=== PATIENT | female | born 1945 | race Caucasian/White ===

== ENCOUNTER 2017-10-04 07:13 | Day surgery (SDC) | payer MEDICARE, SELFPAY ==
--- NOTE | 2017-10-04 | IMM_PTH ---
PATIENT: MATT HOSUE LOC: EN U#:[id number] AGE/SX: 72/F ROOM: RE10/04/[address]: Dr. Ted Seo MD : 1945 BED: DIS: 10/04/2017 SPEC #: [id number] RECD: 10/05/17 10:35 STATUS: CHAYA REKamran #: [id number] IVONNE: 10/04/17 00:[address]: Ted Seo DEPT: IMMUNOHISTOCHEMISTRY RECD BY: Catalina Feliz ENTERED: 10/05/17 10:36 SP TYPE: IMMUNO OTHR DR: Dr. Senait Hannon DO Tissues: A - Stomach, NOS Procedures: H Pylori (initial) PHYSICIAN & INSTITUTION [place] [id number] SPECIMEN INFORMATION: Tissue Source: A ? Antrum biopsy Clinical Info: Chronic GERD, epigastric pain Specimen Number: [id number] CPT code: 57465 METHODOLOGY: Deparaffinized sections of prefer/formalin-fixed tissue or PAP/DQ stained slides are incubated with monoclonal/polyclonal antibodies/oligonucleotide probes. Localization is made via biotin free immunoperoxidase method. Appropriate controls are performed and reacted as expected. Results on target cell population are indicated in the following table: RESULTS: ANTIBODY / CLONE RESULT Block A H Pylori (polyclonal) negative These tests were developed and their performance characteristics determined by [facility]. They may not have been cleared or approved by the U.S. Food and Drug Administration. The FDA has determined that such clearance or approval is not necessary. INTERPRETATION: A. Antrum, biopsy: Negative for Helicobacter pylori organisms. AM:melissa 10/05/17
[2017-10-04 07:54] VITALS: BP 192/86; PULSE 79; TEMP 36.4; O2SAT 99; BMI 27.9
[2017-10-04 08:16] LABS: Bedside Glucose 114 mg/dL (70-110)
--- NOTE | 2017-10-04 09:11 | EGD_PTH ---
PATIENT: MATT HOUSE LOC: EN U#:[id number] AGE/SX: 72/F ROOM: RE10/04/[address]: Dr. Ted Seo MD : 1945 BED: DIS: 10/04/2017 SPEC #: [id number] RECD: 10/04/17 11:04 STATUS: CHAYA CAROLYNE #: [id number] IVONNE: 10/04/17 09:[address]: Ted Seo DEPT: SURGICAL PATHOLOGY RECD BY: Sony Cantor ENTERED: 10/04/17 12:49 SP TYPE: EGD BIOPSY OT DR: Dr. Senait Hannon, Tissues: A - Gastric mucous membrane B - COLON BIOPSY Procedures: Surgery Specimen Level IV HEADER OPERATION: EGD with biopsy, colonoscopy with biopsies PRE-OP DIAGNOSIS: Chronic GERD, epigastric pain TISSUE SUBMITTED: A. Antrum biopsy for H. Pylori and path, B. Random colonic biopsies MICROSCOPIC DIAGNOSIS A. Gastric antrum, biopsy: Mild chronic gastritis. B. Colon, random biopsy: No significant pathologic change. No evidence of colitis. AM:melissa 10/05/17 COMMENT A. The results of immunohistochemistry for Helicobacter pylori will be reported separately ([id number]). MICROSCOPIC DESCRIPTION Slides are reviewed. GROSS DESCRIPTION A - Received in fixative is one container labeled with the patient's name and designated antrum biopsy for H. Pylori and path. The specimen consists of one irregular fragment of light munguia soft tissue that measures 0.3 x 0.3 x 0.1 cm. The specimen is totally submitted in one cassette. B - Received in fixative is one container labeled with the patient's name and designated random colonic biopsy. The specimen consists of multiple irregular fragments of light munguia soft tissue that in aggregate measure 0.6 x 0.6 x 0.1 cm. The specimen is totally submitted in one cassette. / SJ:melissa 10/04/17 TC:3 CPT: 54472 x2
[2017-10-04 09:40] VITALS: BP 120/71; BP 192/86; PULSE 82; RESP 16; TEMP 36.4; O2SAT 98
--- NOTE | 2017-10-04 09:40 | PCM.OPRPT ---
Problem List (1) Abdominal pain, epigastric Status: Acute Report of Operation Date of Procedure: 10/04/17 Pre-Operative Diagnosis: Mid abdominal pain. Post-Operative Diagnosis: Large hiatal hernia with 50% of the stomach within the chest. Sigmoid diverticulosis. Small rectocele Surgery/Procedure Performed:: Esophagogastroduodenoscopy with antral biopsy. Colonoscopy with random colonic biopsies Description of Surgical Findings:: Amount and informed consent was obtained. 72-year-old female was taken to the endoscopy suite. She was placed in a left lateral decubitus position. Oropharynx had been anesthetized with Topex. Throughout both the upper and lower endoscopy she received total 100 mg Demerol and 2.5 mg of Versed is intravenous sedation. Videogastroscope was inserted in the esophageal inlet advanced through the proximal mid esophagus. There was foreshortening of the esophagus to almost 25 6 cm where there appeared to be a tight curvature of the stomach. I was unable to find the true lumen and advanced. The absolute exact position of the e.g. junction was not possible to tell. The scope was then advanced in the stomach easily advanced through the pylorus the first and second portions of the duodenum were inspected not remarkable the scope withdrawn back to the antrum which appeared normal antral biopsy was obtained the scope was retroflexed and then it became apparent that there was a large sliding hiatal hernia with what appeared to be 50% of the stomach within the chest. I did not see any acute abnormalities there is no erosion of the stomach no acute inflammation. The scope was placed back in antegrade viewing position scope was carefully withdrawn and again the large portion of the stomach within the chest noted. The scope was further withdrawn and the procedure was completed. Digital rectal exam performed. Grade 3 hemorrhoids noted. Small rectocele noted. Flexible colonoscope inserted the rectum advanced with tortuous sigmoid colon extensively involved with diverticulosis. The scope was then advanced to the transverse colon by placing the patient supine and with some transabdominal pressure the scope was advanced to the cecum. The cecum ileocecal valve area was nicely achieved bowel prep was very good. The scope was carefully withdrawn from the ascending transverse and descending colon. Extensive diverticulosis of the sigmoid colon noted but no evidence of acute inflammatory change. It is of note that upon withdrawing the scope random colonic biopsies were obtained and attempt to decipher is the patient's complaint of abdominal pain. The scope was withdrawn to the rectum retroflex anorectal verge inspected and the hemorrhoidal changes noted. Excess fluid nurse aspirated free the procedure was completed with the patient tolerating it well Impression Large sliding hiatal hernia with 50% of the stomach in the chest. Foreshortened esophagus. No evidence of acute pathology. Sigmoid diverticulosis. Mildly tortuous colon. Grade 3 internal hemorrhoids. No evidence for active colonic pathology. The patient has never had a previous colonoscopy. Next screening colonoscopy would be 10 years. The patient will be notified of her pathology results as they become available. I did not see any acute pathology. It is indeterminate as to whether her large hiatal hernia is providing her symptoms. Further surgical discussion regarding treatment options will be considered based upon pathology. The patient will need to consider whether she would want to have any type of attempt at hiatal hernia repair. Cc: Dr. Hannon The upper endoscopy was started 0909. The scope was inserted 0912. That procedure was completed at 0916. The colonoscopy was started 0920. The cecum was reached at 0928.58. The procedure was completed at 0934.06. Ted Seo M.D., F.A.C.S. Type of Anesthesia:: IV Sedation
[2017-10-04 09:45] VITALS: BP 115/71; BP 192/86; PULSE 81; RESP 16; O2SAT 100
[2017-10-04 09:50] VITALS: BP 119/56; BP 192/86; PULSE 83; RESP 16; O2SAT 99
[2017-10-04 09:55] VITALS: BP 114/62; BP 192/86; PULSE 78; RESP 18; TEMP 37; O2SAT 100
[2017-10-04 10:40] VITALS: BP 192/86
== END 2017-10-04 10:41 | disposition home or self-care (01) ==
LOC: EN 07:15 → AC 07:16
PROVIDERS: Family Provider Internal Medicine; PCP Internal Medicine; Visit Provider Surgery
PROC: 0DJD8ZZ Inspection of Lower Intestinal Tract, Via Natural or Artificial Opening Endoscopic (ICD-10-PCS; CPT 45378; principal; 2017-10-04 08:25)
DX: K29.50 Unspecified chronic gastritis without bleeding (principal); K44.9 Diaphragmatic hernia without obstruction or gangrene; K57.30 Diverticulosis of large intestine without perforation or abscess without bleeding; K56.2 Volvulus; N81.6 Rectocele; K64.2 Third degree hemorrhoids; I10 Essential (primary) hypertension; K21.9 Gastro-esophageal reflux disease without esophagitis; E11.9 Type 2 diabetes mellitus without complications; Z79.84 Long term (current) use of oral hypoglycemic drugs; Z79.82 Long term (current) use of aspirin; E55.9 Vitamin D deficiency, unspecified; F32.9 Major depressive disorder, single episode, unspecified; F41.9 Anxiety disorder, unspecified; M19.90 Unspecified osteoarthritis, unspecified site; Z87.891 Personal history of nicotine dependence; E78.5 Hyperlipidemia, unspecified; Z79.899 Other long term (current) drug therapy
CPT/HCPCS: 43239; 45380; 82962; 88305; 88342; 99152; 99153; J7120

== ENCOUNTER → 2018-09-07 10:22 | Outpatient (CLI) | payer MEDICARE, SELFPAY ==
--- NOTE | 2018-09-07 10:35 | RAD_ITS ---
STUDY: X-RAY - RIGHT HAND REASON FOR EXAM: Female, 73 years old. Increasing hand and wrist pain. TECHNIQUE: 3 view(s) of the hand. COMPARISON: None. FINDINGS: There are erosive changes of the articular surface of the radius with narrowing and irregularity of the radiocarpal joint. There are erosive changes at the end of the ulna with scalloping along the medial aspect of the radius. There are erosive changes along the inferior aspect of the scaphoid. The lunate is not clearly identified. There is marked osteopenia of the remainder of the carpals with diffuse articular arthrosis. There is degenerative arthrosis of the carpometacarpal (CMC) articulation of the thumb. The second and third carpometacarpal articulations appear fused. The third and fourth appear normal There is diffuse demineralization of the metacarpals. There is degenerative arthrosis of the first metacarpophalangeal (MCP) joint. There is degenerative arthrosis of the interphalangeal joint of the thumb with articular joint space narrowing. Normal proximal and distal phalanges of the thumb. Normal metacarpophalangeal joints of the second through fifth fingers. There is arthrosis of the proximal and distal interphalangeal joints. There is medial subluxation of the second proximal interphalangeal joint. There is marked productivity and joint space narrowing of the distal third and fourth interphalangeal joints. Normal phalanges of the second through fifth fingers. No visualized fracture. The soft tissue structures are unremarkable. RAD/Hand Min 3 Views IMPRESSION: 1. 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 2. Medial subluxation/dislocation of the second proximal interphalangeal joint. 3. Diffuse degenerative changes of the interphalangeal joints. 4. Degenerative changes of first carpometacarpal joint. There is questionable fusion of the second and third carpometacarpal joints. Electronically Signed: Shiv Vital DO at 19:47 EST Tel [phone], Service support ,
--- NOTE | 2018-09-07 10:37 | RAD_ITS ---
STUDY: X-RAY - LEFT HAND REASON FOR EXAM: Female, 73 years old. Increasing hand and wrist pain. TECHNIQUE: 3 view(s) of the hand. COMPARISON: None. FINDINGS: There is marked degenerative changes of the radiocarpal articulation. Are degenerative changes of the distal radioulnar joint. There is limited visualization carpal bones due to hyperexpansion tension of the wrist on all images. The carpals appear intact. There is degenerative joint disease of the scaphotrapezium / trapezoid articulation. The remainder of the carpal articulations are normal. There is degenerative arthrosis of the carpometacarpal articulation of the thumb with lateral subluxation of the first metacarpus. There is narrowing of the second and third metacarpophalangeal joints. The fourth and fifth appear normal. Normal metacarpi. There is degenerative arthrosis of the first metacarpophalangeal (MCP) joint. There is degenerative arthrosis of the interphalangeal joint of the thumb with articular joint space narrowing. Normal proximal and distal phalanges of the thumb. Normal metacarpophalangeal joints of the second through fifth fingers. There are degenerative changes of proximal and distal interphalangeal joints of the second through fifth fingers. This is most marked distally there are erosive changes in bony productivity. Normal phalanges of the second through fifth fingers. The soft tissue structures are unremarkable. RAD/Hand Min 3 Views IMPRESSION: Marked arthritic changes of the left hand as above. Electronically Signed: Shiv Vital DO at 19:53 EST Tel [phone], Service support ,
== END ==
PROVIDERS: Family Provider Internal Medicine; PCP Internal Medicine; Referring Provider Internal Medicine; Visit Provider Internal Medicine
DX: M79.641 Pain in right hand (principal); M79.642 Pain in left hand
CPT/HCPCS: 73130

== ENCOUNTER → 2019-04-10 12:24 | Outpatient (CLI) | payer MEDICARE, SELFPAY ==
--- NOTE | 2019-04-10 12:26 | ART_ITS ---
Reason For Study: claudication Procedure A bilateral lower extremity continuous wave Doppler with analog waveform analysis and ankle brachial indexes. Left Segmental Pressures Left brachial= 167mmHg. Left posterior tibial artery = 95mmHg. Left dorsalis pedis artery = 85mmHg. Left digit = 66 mmHg. The left dorsalis pedis waveforms are monophasic. The left posterior tibial artery waveforms are monophasic. Right Segmental Pressures Right brachial= 170mmHg. Right posterior tibial artery = 184mmHg. Right dorsalis pedis artery = 165mmHg. Right digit = 117 mmHg. The right dorsalis pedis waveforms are triphasic. The right posterior tibial artery waveforms are triphasic. Indices The right ankle brachial index by the dorsalis pedis is .97. The right ankle brachial index by the posterior tibial artery is 1.08. The right digital-brachial index is .69. The left ankle brachial index by the dorsalis pedis is .5. The left ankle brachial index by the posterior tibial artery is .56. The left digital-brachial index is .39. Did not exercise pt due to severity of disease. Interpretation Summary Normal right lower extremity resting ankle brachial index and triphasic waveforms. Abnormal right digital brachial index, possible small vessel disease or temperature related. Abnormal left lower extremity resting ankle brachial index and waveforms--moderately severe occlusive disease. Abnormal left digital brachial index suggesting severe disease on waveform. Ordering Physician: Senait Hannon Performed By: NISHA RUIZ RVT
== END ==
PROVIDERS: Family Provider Internal Medicine; PCP Internal Medicine; Referring Provider Internal Medicine; Visit Provider Internal Medicine
DX: I73.9 Peripheral vascular disease, unspecified (principal)
CPT/HCPCS: 93922

== ENCOUNTER 2022-06-28 14:50 | Outpatient (RCR) | payer MEDICARE, SELFPAY ==
--- NOTE | 2022-06-28 16:52 | HP.PTEVAL ---
Patient's Visit Information MATT HOUSE is a 76 year old F referred to Physical Therapy by Dr. Senait Hannon DO with a diagnosis of Lumbar and Cervical Pain. Date of Evaluation: 06/28/22 Physical Therapist: Taryn Rivera DPT - Visit Plan Frequency: 2x /Week Duration: 4 Weeks Plan: Aquatics: focus on postural strength/stabilization. HEP Given IE: Posture, Upper Trap Stretch, Levator Stretch - Subjective Patient reports that she has arthritis throughout her whole body. When she was at the MD she felt that some thing was different. When she bends back she has pain in the lumbar spine and turning her head to the side. Neck discomfort has been about a month but she has had OA throughout her body for a long time. She was seeing a chiro 6-8 years ago and she was told that she would probably get to a point where she could not move her neck. She has been checked for RA but its negative- only OA. Neck pain is just when she turns her head or anytime she moves she has some discomfort in her spine. The neck is better but not great- she was given muscle relaxers which really helped. Neck: Worst: 7/10 Agg: turning side to side. Best: 0/10 Eases: looking straight she has no pain- describes the pain as pulling. Its more on the right than the left- She had a burning sensation through her head which is better but not complete gone. She reports no PATRICIA, blurred vision or dizziness. She does not have N/T in her hands. 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 Back: Worst: 9/10 Agg: bending back, standing for long periods of time Eases: massager, heating pad. Best: 0/10- She reports its dull- it gets sharp when she bends back. She has PAD and so she has issues with her left leg. No N/T. No leg buckling or falls. She use to be really active but now is very sedentary. She has not had recent x-rays of her spine. Never had injections. Sleep: not disturbed- starts on her left side- back-other side. PMHx: HTN, OA, DM, high cholesterol, GERD, PAD- Left TKR approx 10 years ago. Meds: see list - Objective Posture: FH, RS, increased kyphosis- can correct with verbal and tactile cues but does not maintain. Gait: decreased arm swing and trunk rotation. HR/TR: able with UE A. SLS: weight shift but does not SLS ROM: lumbar: severe restriction with flexion- extension: neutral with pain, SB/Rot: WFL, Hip/Knee/Ankle: WFL, Cervical Spine: Flexion/Extn: WNL, SB Left: WFL, SB Right: 50% restriction, Rot: Right: WNL, Left: dec by 25%, Shoulder/Elbow/Wrist: WFL Strength: Core: poor, Hip: 4/5 throughout Knee: 4+/5, Ankle: 5/5, Shoulder: 4+/5, Elbow: 5/5, Scap: fair minus mild winging. Flex: HS: severe, Gastroc: severe, UT: severe, Levator: Severe. Palpation: tender to touch on the lumbar parapsinals along bilateral gluts- cervical spine from the CT Junction to the occiput- down the upper trap to the AC joint. Reflex: WFL at bilateral patella. Sensation: WFL to gross touch bilateral UE/LE - Special Tests C/S Radiculapathy - Left Spurlings: Positive C/S Radiculapathy - Right Spurlings: Positive C/S Radiculapathy - Left Cervical distraction: Positive C/S Radiculapathy - Right Cervical distraction: Positive L/S Slump test left side: Negative L/S Slump test right side: Negative L/S Left Straight Leg Raise: Negative L/S Right Straight Leg Raise: Negative - Balance/Special Test Scores Oswestry Low Back Score: 22 - Goals Goal 1:: Patient will be I with HEP and progression Goal Time Frame: 4-6 Weeks Goal 2:: Patient will maintain proper posture t/o tx session to demo increased core/scapular s/s Goal Time Frame: 4-6 Weeks Goal 3:: Patient will report 80% improvement Goal Time Frame: 4-6 Weeks Goal 4:: Patient will report full AROM of the cervical spine Goal Time Frame: 4-6 Weeks - Rehabilitation Potential Physical Therapy Diagnosis: Patient presents with hypomobility- she has decreased LE and core/scapular strength/stabilization, flex and muscular endurance leading to poor posture, increased pain with ADL's. Rehabilitation Potential: Fair - Anticipated Interventions Patient/Client Instruction: Educate patient on: Benefits of Fitness Program Therapeutic Exercise to Include: Strength training, Endurance training, Balance training, Coordination, Agility training, Body mechanics, Postural training, Flexibilty training, Gait and locomotor training, Neuromotor development, In an aquatic setting, Dynamic Lumbar Stabilization, Scapular Strength/Stabilization For the Purpose of:: To improve muscle performance and motor function Thank you for the opportunity to evaluate your patient. For Medicare and Medicare HMO plans, please review the plan of care and approve it. It will need to be FAXED BACK to us at [phone] for Medicare purposes. For Medicare only, by signing this I certify the plan of care. Please let me know if there are questions or concerns regarding this plan of care. Physician Signature: Date:
--- NOTE | 2022-10-04 07:49 | HP.PT.NRP ---
[facility] was seen in my office for initial evaluation on 06/28/22. The following Plan of Care was established for this patient: Initial Frequency: 2x /Week Initial Duration: 4 Weeks Patient/Client Instruction: Educate patient on: Benefits of Fitness Program Therapeutic Exercise to Include: Strength training, Endurance training, Balance training, Coordination, Agility training, Body mechanics, Postural training, Flexibilty training, Gait and locomotor training, Neuromotor development, In an aquatic setting, Dynamic Lumbar Stabilization, Scapular Strength/Stabilization For the Purpose of:: To improve muscle performance and motor function This patient was last seen in our office . Pertinent comments regarding their Physical therapy will appear below: Patient has not attended PT in over 30 days- appropriate to be d/c from PT and return to MD as appropriate At this point I will be discontinuing this patient from physical therapy. I would be happy to see this patient again in the future if found appropriate by the physician. Thank you! Taryn Rivera, DPT Balance/Gait/Functional tests - Balance/Special Test Scores Oswestry Low Back Score: 22
== END 2022-06-28 19:00 | disposition home or self-care (01) ==
LOC: PT 14:50
PROVIDERS: PCP Internal Medicine; Referring Provider Internal Medicine; Visit Provider Internal Medicine
DX: M54.12 Radiculopathy, cervical region (principal); M54.16 Radiculopathy, lumbar region
CPT/HCPCS: 97110; 97162

== ENCOUNTER 2022-08-18 14:13 | Emergency (ER) | payer MEDICARE, SELFPAY ==
[2022-08-18 14:13] VITALS: BP 193/83; PULSE 85; RESP 16; TEMP 36.3; O2SAT 97; BMI 26.4
--- NOTE | 2022-08-18 15:13 | EDS_ITS ---
HPI History of Present Illness Chief Complaint: Fall Narrative Narrative: 77-year-old female presenting with headache, neck pain, right shoulder pain. Patient states that she was at her table when she got up to get some cheese and when she did so she fell into the wall off of the kitchen table and onto the floor. She states she does not recall how she fell. She does not know if she tripped or fainted. She does not think she lost consciousness but is unsure. She did hit her head and complains of pain around the right eye and forehead. She states that the head pain in the back of her head, neck, shoulder has been there for months. She initially saw a chiropractor for this. The chiropractor did not help her. She saw her PCP and was put in physical therapy, but she stated that she did not want to do physical therapy and was referred to a orthopedic surgeon who told her she had 2 choices. She states that she was offered pain management or surgery and she chose pain management. Patient denies any chest pain, palpitations, shortness of breath. No history of syncopal events. Feeling otherwise well prior to the event [facility] Medical History Abdominal pain, epigastric Anxiety Arthritis Benign essential hypertension Chronic GERD Depression Gastroesophageal reflux disease Hyperlipidemia Osteoarthritis Type 2 diabetes mellitus Ventral hernia without obstruction or gangrene Vitamin D deficiency Home Medications aspirin 81 mg tablet,delayed release (Adult Low Dose Aspirin) 81 mg PO ONCE 09/16/17 [History Last Taken Unknown] cholecalciferol (vitamin D3) 125 mcg (5,000 unit) capsule 5,000 unit PO ONCE 09/16/17 [History Last Taken Unknown] citalopram 20 mg tablet (Celexa) 20 mg PO QDAY 09/16/17 [History Last Taken Unknown] cranberry extract 500 mg capsule (Cranberry Concentrate) 500 mg PO QDAY 09/16/17 [History Last Taken Unknown] lorazepam 0.5 mg tablet 0.5 mg PO QDAY PRN Anxiety 09/16/17 [History Last Taken Unknown] losartan 100 mg-hydrochlorothiazide 25 mg tablet 1 tab PO QDAY 09/16/17 [History Last Taken 10/04/17 05:30 1 TAB] meloxicam 15 mg tablet 15 mg PO QDAY 09/16/17 [History Last Taken Unknown] metformin 500 mg tablet,extended release 24 hr 500 mg PO QDAY 09/16/17 [History Last Taken Unknown] metoprolol tartrate 25 mg tablet 25 mg PO ONCE 09/16/17 [History Last Taken Unknown] multivitamin 1 tab PO QDAY 09/16/17 [History Last Taken Unknown] omega-3 fatty acids 1,000 mg capsule (Fish Oil Concentrate) 1,000 mg PO BID 09/16/17 [History Last Taken Unknown] omeprazole 20 mg tablet,delayed release 20 mg PO QDAY 09/16/17 [History Last Taken Unknown] simvastatin 40 mg tablet 40 mg PO QODAY 09/16/17 [History Last Taken Unknown] Allergy/AdvReac Type Severity Reaction Status Date / Time hydromorphone [From Dilaudid] Allergy Unknown Unknown Verified 08/18/22 14:16 nitrofurantoin Allergy Unknown got really Verified 08/18/22 14:16 [From Macrodantin] hot and sweaty Family History Mother Arthritis Diabetes Heart disease Hypertension CVA (cerebral vascular accident) High cholesterol Father Arthritis Heart disease High cholesterol Hypertension Daughter Kidney disease Diabetes Surgical History S/P appendectomy S/P cholecystectomy S/P hysterectomy S/P tubal ligation Status post left knee replacement Social History (Updated 09/16/17 @ 16:[address] Ted Seo MD) Smoking Status: Former smoker second hand exposure: No alcohol intake: never substance use type: does not use caffeine: Yes what type of physical activity do you participate in: none frequency: does not exercise seatbelt use: always EXAM Physical Exam Const Vital Signs: 08/18/22 14:13 08/18/22 15:20 08/18/22 16:00 Temperature 97.4 F L Temperature Source Temporal Pulse Rate 85 75 Pulse Rate [Lying] Pulse Rate [Sitting (for 1 minute prior to obtaining)] Pulse Rate [Standing (for 1 minute prior to obtaining)] Respiratory Rate 16 20 H Respiratory Effort Normal Non-Labored Blood Pressure 193/83 H Blood Pressure [Lying] Blood Pressure [Sitting (for 1 minute prior to obtaining)] Blood Pressure [Standing (for 1 minute prior to obtaining)] Blood Pressure Mean 119 Blood Pressure Mean [Lying] Blood Pressure Mean [Sitting (for 1 minute prior to obtaining)] Blood Pressure Mean [Standing (for 1 minute prior to obtaining)] Pulse Ox 97 97 Oxygen Delivery Method Room Air Room Air 08/18/22 17:02 08/18/22 17:22 08/18/22 18:30 Temperature Temperature Source Pulse Rate 71 68 Pulse Rate [Lying] 72 Pulse Rate [Sitting (for 1 minute prior to obtaining)] 84 Pulse Rate [Standing (for 1 minute prior to obtaining)] 88 Respiratory Rate 18 14 Respiratory Effort Blood Pressure 174/85 H Blood Pressure [Lying] 161/67 H Blood Pressure [Sitting (for 1 minute prior to obtaining)] 157/103 H Blood Pressure [Standing (for 1 minute prior to obtaining)] 134/87 H Blood Pressure Mean 114 Blood Pressure Mean [Lying] 98 Blood Pressure Mean [Sitting (for 1 minute prior to obtaining)] 121 Blood Pressure Mean [Standing (for 1 minute prior to obtaining)] 102 Pulse Ox 97 97 Oxygen Delivery Method Room Air Room Air Positive well nourished General Appearance ED: NAD; Negative for pallor HEENT Reports normocephalic HEENT Narrative: Patient continued supraorbital region on the right. Right cheekbone slightly tender without swelling. No extraocular muscle entrapment. Pupils equal. Neck Neck Narrative: No midline spinal tenderness, step-off. There is right cervical paraspinal musculature tenderness. Tenderness in his right trapezius as well Resp normal respiratory effort and clear to auscultation bilaterally Effort and Inspection: Negative for retractions Auscultation: Negative for rales, rhonchi or wheezes Cardio regular rate Extremity Extremity Narrative: Tenderness to palpation in right trapezius into the right shoulder girdle. Patient maintains full range of motion. No numbness or tingling. No rashes. No deformities Neuro oriented x3 Psych mental status grossly normal Skin General Skin Exam: Negative for jaundice or pallor MDM MDM MDM Narrative Medical decision making narrative: 77-year-old female presenting after a fall. She does not know if she fainted or tripped. She did hit her head on the wall, table, floor. She is unsure if she was unconscious. was not in the room. He states he heard a thud and when he came in she was on the floor but she was alert. She does have a swelling on the right forehead and complains of neck pain and shoulder pain. She also states that some of the neck pain and shoulder pain is chronic. She did land on her right shoulder however. She maintains full range of motion and has some tenderness in the right trapezius. Is unclear whether she had an episode of syncope or not. Differential at this point includes but is not limited to subdural, epidural, subarachnoid hemorrhage, concussion, syncope, C- spine fracture, right shoulder fracture, right shoulder sprain, facial bone fracture, patient bone contusion. We will obtain a CT brain, facial bones, CT brain, CT cervical spine. EKG to assess for arrhythmia/dysrhythmia. Chest x- ray due to syncopal episode. Right shoulder x-ray due to right shoulder pain. CBC for white blood cell count, hemoglobin, platelets, differential. CMP for liver function, renal function, electrolytes, glucose, anion gap. Troponin to assess for cardiac etiology. Orthostatic vital signs will be assessed to make sure she is not orthostatic. CBC shows a normal white blood cell count at 9.6. Hemoglobin monitor stable. Platelets are normal. CMP shows normal liver function however creatinine is 1.40 and GFR is 39. There is no comparison in our system or on [employer]. Patient was orthostatic positive so she was given a liter IV fluids. Electrolytes within normal limits. BNP normal at 83. High- sensitivity troponin is 6. Patient does not report any chest pain. Urinalysis negative for infection. CT of the brain, cervical spine, facial bones all normal without fracture or intracranial bleeding. Right shoulder x-ray on my interpretation shows no acute fracture or subluxation. Chest x-ray on my interpretation shows no acute cardiopulmonary process. Radiology interpretation agrees. Patient has been up ambulating to and from the bathroom and has been steady. Given this I did speak to Dr. Maldonado who is on-call for Dr. Hannon I discussed the case at length with her. She is clear by [place] syncope rule. We did not think the patient needed to stay in the hospital. She recomme nded that we have her call the office tomorrow for an office visit and follow-up creatinine. Patient was informed of all this. She is discharged home in stable condition. Return precautions discussed. Impression: 1. Orthostatic hypotension 2. Near syncope 3. Acute kidney injury 4. Closed head injury 5. Cervical strain 6. Right shoulder contusion Lab Data Attestation: I reviewed the patient's lab results. Labs: Laboratory Results - last 24 hr 08/18/22 08/18/22 08/18/22 15:22 15:22 15:22 WBC 9.6 RBC 4.08 L Hgb 12.1 Hct 37.4 MCV 91.7 MCH 29.7 MCHC 32.4 RDW Std Deviation 43.3 RDW Coeff of Marjorie 13.0 Plt Count 231 MPV 9.4 Immature Gran % (Auto) 0.400 Neut % (Auto) 65.2 Lymph % (Auto) 22.4 [place] % (Auto) 9.3 Eos % (Auto) 2.1 Baso % (Auto) 0.6 Absolute Neuts (auto) 6.3 Absolute Lymphs (auto) 2.16 Nucleated RBC % 0 Sodium 140 Potassium 3.8 Chloride 104 Carbon Dioxide 27.0 Anion Gap 9 BUN 20 H Creatinine 1.40 H Estim Creat Clear Calc 23.40 Est GFR (MDRD) Af Amer 47 L Est GFR (MDRD) Non-Af 39 L BUN/Creatinine Ratio 14.3 Glucose 122 H Calcium 9.7 Total Bilirubin 0.40 AST 21 ALT 23 Alkaline Phosphatase 81 Troponin I High Sens 6 B-Natriuretic Peptide 83.3 Total Protein 7.8 Albumin 3.6 Globulin 4.2 Albumin/Globulin Ratio 0.9 Urine Color Urine Clarity Urine pH Ur Specific [place] Urine Protein Urine Glucose (UA) Urine Ketones Urine Occult Blood Urine Nitrite Urine Bilirubin Urine Urobilinogen Ur Leukocyte Esterase Urine RBC Urine WBC Ur Squamous Epith Cells Urine Bacteria Urine Mucus 08/18/22 17:13 WBC RBC Hgb Hct MCV MCH MCHC RDW Std Deviation RDW Coeff of Marjorie Plt Count MPV Immature Gran % (Auto) Neut % (Auto) Lymph % (Auto) [place] % (Auto) Eos % (Auto) Baso % (Auto) Absolute Neuts (auto) Absolute Lymphs (auto) Nucleated RBC % Sodium Potassium Chloride Carbon Dioxide Anion Gap BUN Creatinine Estim Creat Clear Calc Est GFR (MDRD) Af Amer Est GFR (MDRD) Non-Af BUN/Creatinine Ratio Glucose Calcium Total Bilirubin AST ALT Alkaline Phosphatase Troponin I High Sens B-Natriuretic Peptide Total Protein Albumin Globulin Albumin/Globulin Ratio Urine Color Yellow Urine Clarity Clear Urine pH 6.0 Ur Specific [place] 1.015 Urine Protein Negative Urine Glucose (UA) Normal Urine Ketones Negative Urine Occult Blood Negative Urine Nitrite Negative Urine Bilirubin Negative Urine Urobilinogen Normal Ur Leukocyte Esterase 100 H Urine RBC 0 SEEN Urine WBC 0 SEEN Ur Squamous Epith Cells 0-5 SEEN Urine Bacteria 0 SEEN Urine Mucus 0 SEEN Radiography Diagnostic Testing: Clinical Impression(s) from Imaging Studies Brain CT 08/18/22 15:16 IMPRESSION: Chronic involutional changes without evidence of acute intracranial or calvarial abnormality. Electronically Signed: Shiv Vital DO at 16:56 EST Reading Location ID and State: [facility] / [place] Tel [phone], Service support , Cervical Spine CT 08/18/22 15:18 IMPRESSION: Degenerative changes cervical spine without fracture or subluxation. Note: MRI is more sensitive than CT in detecting cord injury, ligamentous injury and epidural hematoma. If there is continued clinical concern for any of these entities, MRI should be considered. Electronically Signed: Shiv Vital DO at 17:01 EST Reading Location ID and State: [place] / [place] Tel [phone], Service support , Facial/Sinus 08/18/22 15:18 IMPRESSION: No evidence of facial bone fracture. Electronically Signed: Shiv Vital DO at 16:58 EST Reading Location ID and State: [facility] / [place] Tel [phone], Service support , Chest X-Ray 08/18/22 15:45 IMPRESSION: 1. Cardiomegaly with retrocardiac hiatal hernia. There is no acute pulmonary disease. 2. No evidence of acute traumatic injury to the chest. Electronically Signed: Shiv Vital DO at 16:12 EST Reading Location ID and State: [facility] / [place] Tel [phone], Service support , Shoulder X-Ray 08/18/22 15:45 IMPRESSION: Osteopenia and degenerative change without acute fracture or dislocation. Electronically Signed: Shiv Vital DO at 16:13 EST Reading Location ID and State: [place] / [place] Tel [phone], Service support , Discharge Plan Triage Chief Complaint: Fall ED Provider: Ryder Dick Dx/Rx/DC Orders Prescriptions: No Action metoprolol tartrate 25 mg tablet 25 mg PO ONCE metformin 500 mg tablet extended release 24 hr 500 mg PO QDAY meloxicam 15 mg tablet 15 mg PO QDAY omeprazole 20 mg tablet,delayed release (DR/EC) 20 mg PO QDAY losartan-hydrochlorothiazide 100-25 mg tablet 1 tab PO QDAY citalopram [Celexa] 20 mg tablet 20 mg PO QDAY simvastatin 40 mg tablet 40 mg PO QODAY lorazepam 0.5 mg tablet 0.5 mg PO QDAY PRN (Reason: Anxiety) cholecalciferol (vitamin D3) 5,000 unit capsule 5,000 unit PO ONCE aspirin [Adult Low Dose Aspirin] 81 mg tablet,delayed release (DR/EC) 81 mg PO ONCE cranberry extract [Cranberry Concentrate] 500 mg capsule 500 mg PO QDAY omega-3 fatty acids [Fish Oil Concentrate] 1,000 mg capsule 1,000 mg PO BID multivitamin tablet 1 tab PO QDAY Primary Care Provider: Senait Hannon Referrals: Senait Hannon DO [Primary Care Provider] -
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
--- NOTE | 2022-08-18 15:17 | EKG12_ITS ---
Test Reason : Blood Pressure : / mmHG Vent. Rate : 073 BPM Atrial Rate : 073 BPM P-R Int : 202 ms QRS Dur : 082 ms QT Int : 408 ms P-R-T Axes : 017 -60 025 degrees QTc Int : 449 ms Normal sinus rhythm Left axis deviation Abnormal ECG Confirmed by JANET KRUEGER, HE ([id number]), digital editor SHIVA YUEN ([id number]) on 08/20/2022 10:10:55 AM Referred By: SHANDRA Confirmed By:HE GONZALES MD
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
[2022-08-18 15:40] LABS: Absolute Lymphocyte Count 2.16 X10^3/uL (0.83-4.51); Absolute Neutrophil Count 6.3 X10^3/uL (2.0-7.7); Basophil# 0.06 X10^3/uL; Basophil% 0.6 % (0-1); Eosinophils% 2.1 % (0-5); Hematocrit 37.4 % (37-47); Hemoglobin 12.1 g/dL (12.0-15.0); Lymphocyte # 2.16 X10^3/ul (0.83-4.51); Lymphocyte % 22.4 % (19-41); Mean Corp Hgb Conc 32.4 g/dL (32-36); Mean Corpuscular Hgb 29.7 pg (27.0-32.0); Mean Corpuscular Volume 91.7 fL (81-99); Mean Platelet Vol. 9.4 fl (6.2-12.0); Monocyte% 9.3 % (0-10); NRBC Flagged by Analyzer 0 % (0-5); Neutrophil # 6.27 X10^3/uL (2.7-7.7); Neutrophil % 65.2 % (47-70); Platelet Count 231 K/mm3 (150-450); RBC Distribution Width SD 43.3 fl (35.1-43.9); Red Blood Count 4.08 M/mm3 (4.2-5.4); White Blood Count 9.6 K/mm3 (4.4-11.0)
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
--- NOTE | 2022-08-18 15:45 | RAD_ITS ---
STUDY: X-RAY - RIGHT SHOULDER REASON FOR EXAM: Female, 77 years old. Fall today. Pain. TECHNIQUE: 3 view(s) of the shoulder. COMPARISON: None. FINDINGS: There is severe degenerative arthrosis of the glenohumeral articulation. There is degenerative arthrosis of the acromioclavicular joint without inferior osseous spur formation. Normal acromion. There is no acute fracture, dislocation or destructive osseous pathology. There is demineralization of the humerus and visualized osseous structures. The soft tissue structures are unremarkable. Normal visualized pulmonary apex. RAD/Shoulder min 2 Views IMPRESSION: Osteopenia and degenerative change without acute fracture or dislocation. Electronically Signed: Shiv Vital DO at 16:13 EST ,
[2022-08-18 16:00] VITALS: PULSE 75; RESP 20; O2SAT 97
[2022-08-18 16:02] LABS: ALB/GLOB Ratio 0.9 RATIO (0.9-2.4); AST(SGOT) 21 U/L (15-37); Alanine Aminotransfer ALT/SGPT 23 U/L (13-56); Albumin, Serum 3.6 g/dL (3.2-5.0); Alkaline Phosphatase 81 U/L (45-117); Anion Gap 9 (5-15); BUN 20 mg/dL (7-18); BUN/Creat Ratio 14.3 RATIO (10-20); Calcium,Total 9.7 mg/dL (8.5-10.1); Chloride 104 mmol/L (98-107); EST Glomerular Filtration Rate 39 mL/min (>60); Est Glom Filt Rate - Afr Amer 47 mL/min (>60); Globulin 4.2 g/dL (2.2-4.2); Glucose 122 mg/dL (74-106); Potassium 3.8 mmol/L (3.5-5.1); Protein, Total 7.8 g/dL (6.4-8.2); Sodium Level 140 mmol/L (136-145); Troponin-I HS 6 pg/mL (3.0-54.0)
[2022-08-18 16:08] LABS: BNP,B-Type NATRIURETIC PEPTIDE 83.3 pg/mL (0-100)
[2022-08-18 17:02] VITALS: BP 134/87; BP 157/103; BP 161/67; PULSE 72; PULSE 84; PULSE 88
[2022-08-18 17:21] LABS: Bacteria 0 SEEN /hpf (None Seen); Mucous, Urine 0 SEEN /hpf (<or=2+); Red Blood Cells-Urine 0 SEEN /hpf (0-5); White Blood Cells 0 SEEN /hpf (0-5)
[2022-08-18 17:22] VITALS: PULSE 71; RESP 18; O2SAT 97
[2022-08-18 17:24] LABS: Color, Urine Yellow (Yellow); Glucose, Dipstick Normal (Normal); Ketone-Dipstick Negative (Negative); Leukocyte Esterase-Dipstick 100 /ul (Negative); Nitrite-Dipstick Negative (Negative); Occult Blood-Urine Negative /ul (Negative); Protein-Dipstick Negative (Negative); Specific Gravity, Urine 1.015 (1.002-1.030); Urine Bilirubin Dipstick Negative (Negative); Urine Clarity Clear (Clear); Urine Urobilinogen Normal (Normal)
[2022-08-18 17:37] LABS: Squamous Epithelial Cells - UA 0-5 SEEN /hpf (5-10)
[2022-08-18] MEDS: 0.9% Normal Saline 1,000 ML 999 ML IV (17:49)
[2022-08-18 18:30] VITALS: BP 174/85; PULSE 68; RESP 14; O2SAT 97
== END 2022-08-18 19:21 | disposition home or self-care (01) ==
PROVIDERS: Emergency Provider Student in an Organized Health Care Education/Training Program; PCP Internal Medicine; Visit Provider Student in an Organized Health Care Education/Training Program
DX: I95.1 Orthostatic hypotension (principal); N17.9 Acute kidney failure, unspecified; S09.90XA Unspecified injury of head, initial encounter; S16.1XXA Strain of muscle, fascia and tendon at neck level, initial encounter; S40.011A Contusion of right shoulder, initial encounter; W19.XXXA Unspecified fall, initial encounter; Z87.891 Personal history of nicotine dependence
CPT/HCPCS: 70450; 70486; 71045; 72125; 73030; 80053; 81001; 83880; 84484; 85025; 93005; 99284; A4216

== ENCOUNTER 2022-09-19 11:56 | Emergency (ER) | payer MEDICARE, SELFPAY ==
[2022-09-19 11:58] VITALS: TEMP 36.6; BMI 28.3
--- NOTE | 2022-09-19 12:21 | CT_ITS ---
STUDY: CT BRAIN WITHOUT CONTRAST REASON FOR EXAM: Female, 77 years old. Vertigo, hypertension RADIATION DOSAGE (If Supplied By Facility): CTDIvol = ( 44.99 ) mGy, DLP = ( 796.11 ) mGycm TECHNIQUE: Transaxial CT imaging of the brain was performed without administration of intravenous contrast material. Individualized dose optimization techniques were used for this CT. COMPARISON: 08/18/2022 FINDINGS: Normal soft tissue structures. Normal calvarium. Normal size ventricles and extra-axial spaces for the patient''s age. Normal white matter tracts of the cerebral hemispheres. Normal basal ganglia and thalami. Normal brainstem. Normal cerebellum. There is no intracranial hemorrhage. There are no findings of an acute ischemic infarction. Normal visualized paranasal sinuses. CT/Brain/Head without Contrast IMPRESSION: Chronic involutional changes of the brain. No acute hemorrhage or significant interval change Electronically Signed: Quique Salmeron MD at 13:36 EDT ,
--- NOTE | 2022-09-19 12:24 | EDS_ITS ---
HPI History of Present Illness Chief Complaint: Chest Pain Informant: patient Narrative Narrative: Patient woke up in the middle of the night, maybe around 3 AM or so, but she is not exactly sure because this was the night that daylight savings time went into affect, with an episode of lower chest discomfort that she felt in her mid upper back. No other associated symptoms with it. She had a for maybe 30 or 60 minutes total and presents here around noon for the symptoms. She states she took some antiacid and thinks that it helped, the discomfort went away and she went back to bed but does remember getting up and feeling off balance and dizzy like things were moving/spinning in her head. She has chronic tinnitus that is no different, bilaterally. She has had vertigo like this in the past, but it has been a while. She states changing positions makes the vertigo worse, resting and remaining still makes it better, she states during the interview that she still has it just a little bit right now. No history of any heart problems, last time she had a stress test was several years ago without any stents being placed, she follows with a vascular specialist and is on baby aspirin and pentoxifylline, no anticoagulants. She also has chronic neck and base of head pain, with limited mobility of her neck that is chronic and she has had a CT here in the past but mentions it. She also states she has a history of reflux and a hiatal hernia. [facility] Medical History (Updated 09/19/22 @ 13:[address] Elliott Valerio MD) Abdominal pain, epigastric Anxiety Arthritis Benign essential hypertension Chronic GERD Depression Gastroesophageal reflux disease Hyperlipidemia Osteoarthritis Type 2 diabetes mellitus Ventral hernia without obstruction or gangrene Vitamin D deficiency Home Medications aspirin 81 mg tablet,delayed release (Adult Low Dose Aspirin) 81 mg PO ONCE 09/16/17 [History Last Taken Unknown] cholecalciferol (vitamin D3) 125 mcg (5,000 unit) capsule 5,000 unit PO ONCE 09/16/17 [History Last Taken Unknown] citalopram 20 mg tablet (Celexa) 20 mg PO QDAY 09/16/17 [History Last Taken Unknown] cranberry extract 500 mg capsule (Cranberry Concentrate) 500 mg PO QDAY 09/16/17 [History Last Taken Unknown] lorazepam 0.5 mg tablet 0.5 mg PO QDAY PRN Anxiety 09/16/17 [History Last Taken Unknown] losartan 100 mg-hydrochlorothiazide 25 mg tablet 1 tab PO QDAY 09/16/17 [History Last Taken 10/04/17 05:30 1 TAB] meloxicam 15 mg tablet 15 mg PO QDAY 09/16/17 [History Last Taken Unknown] metformin 500 mg tablet,extended release 24 hr 500 mg PO QDAY 09/16/17 [History Last Taken Unknown] metoprolol tartrate 25 mg tablet 25 mg PO ONCE 09/16/17 [History Last Taken Unknown] multivitamin 1 tab PO QDAY 09/16/17 [History Last Taken Unknown] omega-3 fatty acids 1,000 mg capsule (Fish Oil Concentrate) 1,000 mg PO BID 09/16/17 [History Last Taken Unknown] omeprazole 20 mg tablet,delayed release 20 mg PO QDAY 09/16/17 [History Last Taken Unknown] simvastatin 40 mg tablet 40 mg PO QODAY 09/16/17 [History Last Taken Unknown] meclizine 25 mg tablet 25 mg PO Q8H PRN PRN Dizziness #15 tabs 09/19/22 [Rx Last Taken Unknown] Allergy/AdvReac Type Severity Reaction Status Date / Time hydromorphone [From Dilaudid] Allergy Unknown Unknown Verified 09/19/22 11:57 nitrofurantoin Allergy Unknown got really Verified 09/19/22 11:57 [From Macrodantin] hot and sweaty Family History Mother Arthritis Diabetes Heart disease Hypertension CVA (cerebral vascular accident) High cholesterol Father Arthritis Heart disease High cholesterol Hypertension Daughter Kidney disease Diabetes Surgical History S/P appendectomy S/P cholecystectomy S/P hysterectomy S/P tubal ligation Status post left knee replacement Social History Smoking Status: Former smoker second hand exposure: No alcohol intake: never substance use type: does not use caffeine: Yes what type of physical activity do you participate in: none frequency: does not exercise seatbelt use: always ROS ROS ED Constitutional Constitutional ED: Denies chills or fever(s) Eyes Eyes: Denies change in vision or diplopia ENT ENT ED: Reports tinnitus and vertigo; Denies headache(s), nasal congestion, rhinorrhea or sore throat Cardiovascular Cardiovascular: Reports as per HPI and chest pain; Denies palpitations Respiratory/Chest Respiratory/Chest: Denies cough or dyspnea Gastrointestinal Gastrointestinal: Denies abdominal pain, diarrhea, nausea or vomiting Genitourinary Genitourinary ED: Denies dysuria or hematuria Musculoskeletal Musculoskeletal: Reports as per HPI, neck pain and other Details: Upper back pain, now resolved Integumentary Denies abscess or rash Neurologic Neurologic: Denies headache(s), paresthesias or weakness Psychiatric Psychiatric: Denies anxiety or suicidal thoughts EXAM Physical Exam Const Vital Signs: 09/19/22 11:58 09/19/22 12:57 09/19/22 14:00 Temperature 98 F Temperature Source Temporal Pulse Rate 65 78 Respiratory Rate 15 16 Blood Pressure 147/111 H 171/74 H Blood Pressure Mean 123 106 Pulse Ox 98 97 Oxygen Delivery Method Room Air Room Air Positive well nourished and well developed General Appearance ED: well developed and NAD HEENT Reports TM's clear and moist mucous membranes normocephalic and atraumatic Tympanic Membrane ED: Yes TM's clear Eyes PERRL and EOMs intact bilaterally Neck supple Neck Narrative: Limited range of motion of the neck, she has pain with moving too far rotating too far, she cannot go to [address], but short arc range of motion in either direction is relatively painless. This limits my ability to perform jolt test. Resp normal respiratory effort and clear to auscultation bilaterally Cardio regular rate, regular rhythm and no murmurs GI non-tender and non-distended Auscultation: normoactive bowel sounds Palpation: soft Back/Spine no CVA tenderness General Back: other FROM Extremity normal to inspection General Extremety ED: Negative for edema, pulses abnormal or tenderness General Extremity: Negative for edema or pulses abnormal Neuro oriented x3, CN's II-XII intact bilaterally and no sensory deficits noted Neuro Narrative: Normal [id number] and exhu-iq-[id number] bilaterally Sensorium / Orientation: awake and alert Motor Exam: strength 5/5 throughout Skin no rashes or lesions noted and no wounds MDM MDM MDM Narrative Medical decision making narrative: Given the patient's age and disequilibrium/vertigo I did a CT head. Those images appear unremarkable, radiology was in agreement and I agree with her interpretation. Her EKG is essentially normal except for a left axis, which is pre-existing and upon reviewing her old EKG from August. Troponin is negative. She had symptoms hours ago I do not think we need to do a delta, and in addition to this she has a large hiatal hernia on her 1 view chest x-ray on my interpretation, radiology in agreement that there is nothing else acute. I think her discomfort was more likely related to that specially given the details of the history. I gave her meclizine and no other medications, on reevaluation her vertiginous symptoms remained resolved, however when she went to CT and they laid her down she had recurrent vertigo that was significant, but upon the sitting still it totally resolved, consistent with peripheral etiology, and her blood pressure came down to the 140s without specifically treating it. I am less suspicious of this being central etiology. We ambulated her, she did well and felt okay with going home and following up. Given all this am comfortable with her being discharged home. She is in agreement. History & Record Review Additional record(s) reviewed:: Other (Prior EKG) Lab Data Attestation: I reviewed the patient's lab results. Labs: Laboratory Results - last 24 hr 09/19/22 09/19/22 12:51 12:51 WBC 9.4 RBC 4.13 L Hgb 12.6 Hct 38.7 MCV 93.7 MCH 30.5 MCHC 32.6 RDW Std Deviation 44.0 H RDW Coeff of Marjorie 12.9 Plt Count 254 MPV 9.5 Immature Gran % (Auto) 0.400 Neut % (Auto) 77.0 H Lymph % (Auto) 14.4 L Bandera % (Auto) 5.9 Eos % (Auto) 1.7 Baso % (Auto) 0.6 Absolute Neuts (auto) 7.2 Absolute Lymphs (auto) 1.35 Nucleated RBC % 0 Sodium 141 Potassium 4.2 Chloride 105 Carbon Dioxide 28.0 Anion Gap 8 BUN 20 H Creatinine 1.15 H Estim Creat Clear Calc 28.49 Est GFR (MDRD) Af Amer 59 L Est GFR (MDRD) Non-Af 48 L BUN/Creatinine Ratio 17.4 Glucose 112 H Calcium 9.9 Troponin I High Sens 8 Radiography Diagnostic Testing: Clinical Impression(s) from Imaging Studies Brain CT 09/19/22 12:21 IMPRESSION: Chronic involutional changes of the brain. No acute hemorrhage or significant interval change Electronically Signed: Quique Salmeron MD at 13:36 EDT , Chest X-Ray 09/19/22 13:02 IMPRESSION: 1. No acute findings in the chest. 2. Large gastric hernia. 3. No interval change when compared to 08/18/2022. Electronically Signed: Branden Hawkins MD at 13:32 EDT , Rhythm Strip Rhythm Strip: Sinus Rhythm Rate: 85 Ectopy: None EKG Initial EKG: Attestation: I personally reviewed and interpreted this EKG as follows: Interpretation: Sinus Rhythm, No Acute Injury Pattern and LAFB Prior EKG tracings: available for review Prior: Unchanged Discharge Plan Triage Chief Complaint: Chest Pain ED Provider: Elliott Valerio Dx/Rx/DC Orders Clinical Impression: Chest pain, Peripheral vertigo Instructions: ED Vertigo, Unspecified Prescriptions: New meclizine [meclizine] 25 mg tablet 25 mg PO Q8H PRN PRN (Reason: Dizziness) Qty: 15 0RF No Action metoprolol tartrate 25 mg tablet 25 mg PO ONCE metformin 500 mg tablet extended release 24 hr 500 mg PO QDAY meloxicam 15 mg tablet 15 mg PO QDAY omeprazole 20 mg tablet,delayed release (DR/EC) 20 mg PO QDAY losartan-hydrochlorothiazide 100-25 mg tablet 1 tab PO QDAY citalopram [Celexa] 20 mg tablet 20 mg PO QDAY simvastatin 40 mg tablet 40 mg PO QODAY lorazepam 0.5 mg tablet 0.5 mg PO QDAY PRN (Reason: Anxiety) cholecalciferol (vitamin D3) 5,000 unit capsule 5,000 unit PO ONCE aspirin [Adult Low Dose Aspirin] 81 mg tablet,delayed release (DR/EC) 81 mg PO ONCE cranberry extract [Cranberry Concentrate] 500 mg capsule 500 mg PO QDAY omega-3 fatty acids [Fish Oil Concentrate] 1,000 mg capsule 1,000 mg PO BID multivitamin tablet 1 tab PO QDAY Primary Care Provider: Senait Hannon Referrals: Senait Hannon DO [Primary Care Provider] - 3-5 Days Disposition Disposition: Home, Self Care
[2022-09-19] MEDS: Meclizine HCl 25 MG Tablet PO (12:55)
[2022-09-19 12:57] VITALS: BP 147/111; PULSE 65; RESP 15; O2SAT 98
--- NOTE | 2022-09-19 13:02 | RAD_ITS ---
EXAM: XR CHEST, 2 VIEWS CLINICAL INDICATION: chest pain TECHNIQUE: Frontal and lateral views of the chest. This report was created using [employer] report generation technology. COMPARISON: 08/18/2022. FINDINGS: LUNGS AND PLEURAL SPACES: Pulmonary hypoinflation. The lungs are clear. No pneumothorax. No effusion. HEART: Mild cardiomegaly. MEDIASTINUM: Central airways and mediastinal contour are unremarkable. BONES/JOINTS: Unremarkable. SOFT TISSUES: Unremarkable. UPPER ABDOMEN: Large gastric hernia. RAD/Chest PA and Lateral IMPRESSION: 1. No acute findings in the chest. 2. Large gastric hernia. 3. No interval change when compared to 08/18/2022. Electronically Signed: Branden Hawkins MD at 13:32 EDT ,
[2022-09-19 13:09] LABS: Absolute Lymphocyte Count 1.35 X10^3/uL (0.83-4.51); Absolute Neutrophil Count 7.2 X10^3/uL (2.0-7.7); Basophil# 0.06 X10^3/uL; Basophil% 0.6 % (0-1); Eosinophil# 0.16 X10^3/uL; Eosinophils% 1.7 % (0-5); Hematocrit 38.7 % (37-47); Hemoglobin 12.6 g/dL (12.0-15.0); Lymphocyte # 1.35 X10^3/ul (0.83-4.51); Lymphocyte % 14.4 % (19-41); Mean Corp Hgb Conc 32.6 g/dL (32-36); Mean Corpuscular Hgb 30.5 pg (27.0-32.0); Mean Corpuscular Volume 93.7 fL (81-99); Mean Platelet Vol. 9.5 fl (6.2-12.0); Monocyte# 0.55 X10^3/uL; Monocyte% 5.9 % (0-10); NRBC Flagged by Analyzer 0 % (0-5); Neutrophil # 7.24 X10^3/uL (2.7-7.7); Platelet Count 254 K/mm3 (150-450); RBC Distribution Width CV 12.9 % (11.6-14.6); Red Blood Count 4.13 M/mm3 (4.2-5.4); White Blood Count 9.4 K/mm3 (4.4-11.0)
[2022-09-19 13:20] LABS: Anion Gap 8 (5-15); BUN 20 mg/dL (7-18); BUN/Creat Ratio 17.4 RATIO (10-20); Calcium,Total 9.9 mg/dL (8.5-10.1); Chloride 105 mmol/L (98-107); Creatinine, Serum 1.15 mg/dL (0.55-1.02); EST Glomerular Filtration Rate 48 mL/min (>60); Est Glom Filt Rate - Afr Amer 59 mL/min (>60); Estimated Creatinine Clearance 28.49 ml/min; Glucose 112 mg/dL (74-106); Potassium 4.2 mmol/L (3.5-5.1); Sodium Level 141 mmol/L (136-145); Troponin-I HS 8 pg/mL (3.0-54.0)
[2022-09-19 14:00] VITALS: BP 171/74; PULSE 78; RESP 16; O2SAT 97
== END 2022-09-19 15:57 | disposition home or self-care (01) ==
PROVIDERS: Emergency Provider Emergency Medicine; PCP Internal Medicine; Visit Provider Emergency Medicine
DX: R07.9 Chest pain, unspecified (principal); E11.9 Type 2 diabetes mellitus without complications; H81.399 Other peripheral vertigo, unspecified ear; E78.5 Hyperlipidemia, unspecified; E55.9 Vitamin D deficiency, unspecified; F41.9 Anxiety disorder, unspecified; Z79.82 Long term (current) use of aspirin; Z79.84 Long term (current) use of oral hypoglycemic drugs; Z79.899 Other long term (current) drug therapy; Z87.891 Personal history of nicotine dependence
CPT/HCPCS: 70450; 71046; 80048; 84484; 85025; 93005; 99285

== ENCOUNTER 2022-10-11 09:35 | Day surgery (SDC) | payer MEDICARE, SELFPAY ==
[2022-10-11 10:41] VITALS: BP 149/77; PULSE 74; RESP 16; TEMP 37.1; O2SAT 98; BMI 26.7
--- NOTE | 2022-10-11 11:03 | RAD_ITS ---
STUDY: X-RAY - CERVICAL SPINE REASON FOR EXAM: Female, 77 years old. Cervical epidural steroid injection TECHNIQUE: 3 view(s) of the cervical spine were obtained.. COMPARISON: None FINDINGS: Intraoperative imaging provided for cervical epidural steroid injection. RAD/Cerv Spine 2 or 3 Views IMPRESSION: Intraoperative imaging provided for cervical epidural steroid injection. Electronically Signed: Matteo Mccollum MD at 15:35 EDT ,
[2022-10-11] MEDS: MethylPREDNISolone Acetate 80 MG/ML Vial (11:09)
--- NOTE | 2022-10-11 11:20 | OP.PCM_ITS ---
Report of Operation Date of Procedure: 10/11/22 Description of Surgical Findings:: PREOPERATIVE DIAGNOSES:?Cervical radiculopathy, cervical degenerative disc disease, cervical spinal stenosis POSTOPERATIVE DIAGNOSES:?Cervical radiculopathy, cervical degenerative disc disease, cervical spinal stenosis PROCEDURE PERFORMED:?Diagnostic/therapeutic?cervical epidural steroid injection, interlaminar at C7-T1 under fluoroscopic guidance. ANESTHESIA:? Local. BLOOD LOSS:? Minimal. COMPLICATIONS:? None. DESCRIPTION OF PROCEDURE:? History and physical of today was reviewed.? Risks and benefits of the procedure were explained.? The patient understood and agreed to proceed.? Informed consent was obtained.? IV inserted per routine protocol.? The patient was taken to the operating room and placed in the prone position with a pillow positioned underneath the chest.? The neck area was prepped and draped in a sterile fashion using iodine x3.? Under fluoroscopy guidance on an AP view, the C7-T1 interlaminar space was identified.? The skin and subcutaneous tissue was anesthetized with approximately 3 mL of 1% lidocaine using a 25-gauge regular needle.? Under direct visualization on fluoroscopy, on AP view, using a 20-gauge 2-1/2-inch Tuohy needle, the needle was advanced via the skin.? The tip of the needle was maneuvered and directed towards the interlaminar space at C7- T1.? Loss of resistance technique was carried to air.? Loss of resistance technique was encountered.? Once encountered, after negative aspiration for blood and CSF, a total of 1 mL of contrast was injected to confirm correct placement of the needle as well as cephalocaudal spread of the contrast.? Confirmation was obtained on AP as well as lateral view.? After repeated negative aspiration and confirmation, a total of 3 mL of preservative-free normal saline and 80 mg of Depo-Medrol was injected easily.? The needle was then removed intact.? The patient experienced no sign or symptoms of intrathecal or intravascular injection.? The patient experienced no paresthesia.? The procedure was completed without any apparent difficulty or any complications.? The patient appeared to tolerate it well. ASSESSMENT AND PLAN:? This is a 77-year-old female with cervical radiculopathy, cervical degenerative disc disease, diagnostic/therapeutic cervical spinal stenosis status post ce rvical epidural steroid injection interlaminar at C7-T1 under fluoroscopic guidance, patient will continue his current medications, patient will follow approximately 2 weeks for reevaluation.
[2022-10-11 11:21] LABS: Bedside Glucose 97 mg/dL (74-106)
[2022-10-11 12:02] VITALS: BP 140/89; PULSE 67; RESP 16; TEMP 36.6; O2SAT 96
== END 2022-10-11 12:04 | disposition home or self-care (01) ==
LOC: SDC 09:42 → AC 10:15
PROVIDERS: PCP Internal Medicine; Referring Provider Anesthesiology Pain Medicine; Visit Provider Anesthesiology Pain Medicine
PROC: 3E0S3BZ Introduction of Anesthetic Agent into Epidural Space, Percutaneous Approach (ICD-10-PCS; CPT 62320; principal; 2022-10-11 11:15)
DX: M48.02 Spinal stenosis, cervical region (principal); M50.13 Cervical disc disorder with radiculopathy, cervicothoracic region
CPT/HCPCS: 62321; 01992; 64490; 72040; 82962; A4216

== ENCOUNTER 2022-12-03 22:35 | Emergency (ER) | payer MEDICARE, SELFPAY ==
[2022-12-03 22:35] VITALS: BP 162/103; PULSE 73; RESP 16; TEMP 36.6; O2SAT 100; BMI 27.0
--- NOTE | 2022-12-04 01:02 | EX.ED.DYSGE1 ---
HPI History of Present Illness Chief Complaint: Other, Pain/Inj Informant: patient and spouse/S.O. Narrative Narrative: Patient is a 77-year-old female with history of chronic neck pain currently in pain management as well as hypertension and diabetes. She states that she is taking the tramadol which was prescribed by pain management and has been doing so as directed but there is been no improvement in her pain. She denies any recent trauma or excessive activity or difficulty breathing or swallowing. She states that because she has been taking the medication that was given to her by pain management to help with her recurrent symptoms and has not had improvement she presents for evaluation [facility] Medical History (Updated 12/05/22 @ 22:[address] Lamin Salgado, DO) Abdominal pain, epigastric Anxiety Arthritis Benign essential hypertension Chronic GERD Depression Gastroesophageal reflux disease Hyperlipidemia Osteoarthritis Type 2 diabetes mellitus Ventral hernia without obstruction or gangrene Vitamin D deficiency Home Medications aspirin 81 mg tablet,delayed release (Adult Low Dose Aspirin) 81 mg PO ONCE 09/16/17 [History Last Taken Unknown] cholecalciferol (vitamin D3) 125 mcg (5,000 unit) capsule 5,000 unit PO ONCE 09/16/17 [History Last Taken Unknown] citalopram 20 mg tablet (Celexa) 20 mg PO QDAY 09/16/17 [History Last Taken 10/11/22] cranberry extract 500 mg capsule (Cranberry Concentrate) 500 mg PO QDAY 09/16/17 [History Last Taken Unknown] lorazepam 0.5 mg tablet 0.5 mg PO QDAY PRN Anxiety 09/16/17 [History Last Taken Unknown] losartan 100 mg-hydrochlorothiazide 25 mg tablet 1 tab PO QDAY 09/16/17 [History Last Taken 10/11/22] meloxicam 15 mg tablet 15 mg PO QDAY 09/16/17 [History Last Taken Unknown] metformin 500 mg tablet,extended release 24 hr 500 mg PO QDAY 09/16/17 [History Last Taken Unknown] metoprolol tartrate 25 mg tablet 25 mg PO ONCE 09/16/17 [History Last Taken Unknown] multivitamin 1 tab PO QDAY 09/16/17 [History Last Taken Unknown] omega-3 fatty acids 1,000 mg capsule (Fish Oil Concentrate) 1,000 mg PO BID 09/16/17 [History Last Taken Unknown] omeprazole 20 mg tablet,delayed release 20 mg PO QDAY 09/16/17 [History Last Taken Unknown] simvastatin 40 mg tablet 40 mg PO QODAY 09/16/17 [History Last Taken Unknown] meclizine 25 mg tablet 25 mg PO Q8H PRN PRN Dizziness #15 tabs 09/19/22 [Rx Last Taken Unknown] tramadol 50 mg tablet 50 mg PO BID 10/11/22 [History Last Taken 10/11/22] diazepam 5 mg tablet (Valium) 5 mg PO TID PRN muscle spasm 5 days #15 tabs 12/04/22 [Rx Last Taken Unknown] gabapentin 100 mg capsule 100 mg PO BID 30 days #60 caps 12/04/22 [Rx Last Taken Unknown] prednisone 20 mg tablet 20 mg PO DAILY 5 days #5 tabs 12/04/22 [Rx Last Taken Unknown] Allergy/AdvReac Type Severity Reaction Status Date / Time hydromorphone [From Dilaudid] Allergy Unknown Unknown Verified 12/03/22 22:37 nitrofurantoin Allergy Unknown got really Verified 12/03/22 22:37 [From Macrodantin] hot and sweaty Family History Mother Arthritis Diabetes Heart disease Hypertension CVA (cerebral vascular accident) High cholesterol Father Arthritis Heart disease High cholesterol Hypertension Daughter Kidney disease Diabetes Surgical History S/P appendectomy S/P cholecystectomy S/P hysterectomy S/P tubal ligation Status post left knee replacement Social History Smoking Status: Former smoker second hand exposure: No alcohol intake: never substance use type: does not use caffeine: Yes what type of physical activity do you participate in: none frequency: does not exercise seatbelt use: always ROS ROS ED Constitutional Constitutional ED: Denies chills or fever(s) ENT ENT ED: Denies sore throat Cardiovascular Cardiovascular: Denies chest pain Respiratory/Chest Respiratory/Chest: Denies cough or dyspnea Gastrointestinal Gastrointestinal: Denies abdominal pain, diarrhea, nausea or vomiting Genitourinary Genitourinary ED: Denies dysuria Musculoskeletal Musculoskeletal: Reports neck pain Integumentary Denies rash Neurologic Neurologic: Denies headache(s), paresthesias or weakness Hematologic/Lymphatic Hematologic/Lymphatic: Denies easy bleeding or easy bruising EXAM Physical Exam Const Vital Signs: 12/03/22 22:35 12/03/22 23:16 Temperature 98 F Temperature Source Temporal Pulse Rate 73 Respiratory Rate 16 Respiratory Pattern Normal Blood Pressure 162/103 H Blood Pressure Mean 122 Pulse Ox 100 Oxygen Delivery Method Room Air Positive well nourished and well developed General Appearance ED: well developed HEENT Reports moist mucous membranes HEENT Narrative: No signs of infection in the posterior pharynx no airway edema or compromise Eyes PERRL and EOMs intact bilaterally Neck Neck Narrative: No bony deformity or step-off of the cervical spine. There is diffuse posterior neck pain with palpation that worsens with extension and flexion and sidebending. No nuchal rigidity or meningeal signs noted Resp normal respiratory effort and clear to auscultation bilaterally Cardio regular rate and regular rhythm Rate: other Other Details: Radial pulses are plus 2 out of 4 bilaterally are equal and symmetric Carotid pulses are equal and symmetric as well Extremity normal to inspection Neuro oriented x3, CN's II-XII intact bilaterally and no sensory deficits noted Sensorium / Orientation: alert Psych mental status grossly normal Skin no rashes or lesions noted MDM MDM MDM Narrative Medical decision making narrative: Patient presented to the ER hypertensive but otherwise with stable vitals. She had no report or signs of trauma and does have a history of chronic neck pain for which she takes Ultram for. She states that there has been no excessive activity and by exam there is no signs of posterior pharynx infection worsening her pain or signs of neurovascular compromise. At this time I do not believe imaging or laboratory studies are warranted as there is no signs of infection or trauma or vascular injury. Therefore patient will be medicated and after doing so she did report improvement of pain and is otherwise safe for discharge. History & Record Review Discussion w/independent historian: Patient and Significant other Discharge Plan Triage Chief Complaint: Other, Pain/Inj ED Provider: Lamin Salgado Dx/Rx/DC Orders Clinical Impression: Chronic neck pain, Cervical radiculopathy, Type 2 diabetes mellitus, Benign essential hypertension Instructions: ED Neck Pain Prescriptions: New gabapentin 100 mg capsule 100 mg PO BID 30 Days Qty: 60 0RF prednisone 20 mg tablet 20 mg PO DAILY 5 Days Qty: 5 0RF diazepam [Valium] 5 mg tablet 5 mg PO TID PRN (Reason: muscle spasm) 5 Days Qty: 15 0RF No Action metoprolol tartrate 25 mg tablet 25 mg PO ONCE metformin 500 mg tablet extended release 24 hr 500 mg PO QDAY meloxicam 15 mg tablet 15 mg PO QDAY omeprazole 20 mg tablet,delayed release (DR/EC) 20 mg PO QDAY losartan-hydrochlorothiazide 100-25 mg tablet 1 tab PO QDAY citalopram [Celexa] 20 mg tablet 20 mg PO QDAY simvastatin 40 mg tablet 40 mg PO QODAY lorazepam 0.5 mg tablet 0.5 mg PO QDAY PRN (Reason: Anxiety) cholecalciferol (vitamin D3) 5,000 unit capsule 5,000 unit PO ONCE aspirin [Adult Low Dose Aspirin] 81 mg tablet,delayed release (DR/EC) 81 mg PO ONCE cranberry extract [Cranberry Concentrate] 500 mg capsule 500 mg PO QDAY omega-3 fatty acids [Fish Oil Concentrate] 1,000 mg capsule 1,000 mg PO BID multivitamin tablet 1 tab PO QDAY meclizine [meclizine] 25 mg tablet 25 mg PO Q8H PRN PRN (Reason: Dizziness) Qty: 15 0RF tramadol 50 mg tablet 50 mg PO BID Primary Care Provider: Senait Hannon Referrals: Senait Hannon DO [Primary Care Provider] - Activity Restrictions/Additional Instructions: Please stop taking your lorazepam as the Valium is in the same family but this should be better for your muscle pain and spasm. Follow-up with your pain management doctor as previously directed and return to the ER should you have any further concerns Disposition Disposition: Home, Self Care Discharge Date/Time: 12/04/22 01:41
[2022-12-04] MEDS: dexAMETHasone 10 MG/ML Vial IM (01:09)
[2022-12-04] MEDS: Ondansetron ODT 4 MG Tablet PO (01:09)
[2022-12-04] MEDS: diazePAM 5 MG Tablet PO (01:09)
[2022-12-04] MEDS: Morphine 4 MG/ML Syringe 6 MG IM (01:10)
== END 2022-12-04 01:41 | disposition home or self-care (01) ==
PROVIDERS: Emergency Provider Emergency Medicine; PCP Internal Medicine; Visit Provider Emergency Medicine
DX: M54.12 Radiculopathy, cervical region (principal); E11.9 Type 2 diabetes mellitus without complications; G89.29 Other chronic pain; I10 Essential (primary) hypertension; Z87.891 Personal history of nicotine dependence
CPT/HCPCS: 96372; 99283

== ENCOUNTER 2022-12-13 11:44 | Day surgery (SDC) | payer MEDICARE, SELFPAY ==
[2022-12-13] VITALS (7 sets, daily range): BP systolic 97–141; BP diastolic 48–96; PULSE 72–78; RESP 16; TEMP 36.6–36.9; O2SAT 98–100; BMI 26.2
--- NOTE | 2022-12-13 12:59 | RAD_ITS ---
PROCEDURE: Right C3-C6 medial nerve branch block DATE OF EXAMINATION: December 13, 2022 INDICATION: Female, 77 years old. Chronic neck pain. FLUOROSCOPY TIME (if supplied): (11 seconds) minutes/seconds. 3 images. 2.54 mGy Intraoperative imaging provided for right C3-C6 medial branch nerve block. RAD/Cerv Spine 2 or 3 Views IMPRESSION: Intraoperative imaging provided for right C3-C6 medial branch nerve block. Electronically Signed: Matteo Mccollum MD at 15:37 EDT ,
[2022-12-13] MEDS: MethylPREDNISolone Acetate 80 MG/ML Vial (13:05)
--- NOTE | 2022-12-13 13:15 | OP.PCM_ITS ---
Report of Operation Date of Procedure: 12/13/22 Description of Surgical Findings:: PREOPERATIVE DIAGNOSIS: Cervical spondylosis, cervical degenerative disc disease, cervical facet arthropathy POSTOPERATIVE DIAGNOSIS: Cervical spondylosis, cervical degenerative disc disease, cervical facet arthropathy PROCEDURE PERFORMED: Right-sided cervical medial branch block at C3, C4, C5, and C6. ANESTHESIA: MAC. BLOOD LOSS: Minimal. COMPLICATIONS: None. DESCRIPTION OF PROCEDURE: History and physical of today was reviewed. Risks and benefits of the procedure were explained. The patient understood and agreed to proceed. Informed consent was obtained. IV inserted per routine protocol. The patient was taken to the operating room and placed in the prone position with a pillow positioned underneath the chest. The neck area was prepped and draped in a sterile fashion using iodine x3. Under fluoroscopy guidance on an AP view, the C3 through C6 vertebral bodies were visualized at approximately 10- degree angle, starting on the right C3, ending on the right C6, passing through the C4 and C5. Using a 25-gauge 3-1/2-inch spinal needle, the needle was advanced via the skin. The tip of the needle was maneuvered and directed tow ards the epiphyseal junction of each corresponding vertebra. Once the tip of the needle was at the vicinity of the medial branch, the needle was pulled approximately 2 mm off the bone. After negative aspiration of blood or CSF and confirmation on AP, oblique as well as lateral view, a total of 4 mL of preservative-free 0.25% Marcaine with 80 mg of Depo-Medrol was injected in divided doses between those four levels. The needles were then removed intact. The patient experienced no sign or symptoms of intrathecal or intravascular injection. The patient experienced no paresthesia. The procedure was completed without any apparent difficulty or any complications. The patient appeared to tolerate it well. ASSESSMENT AND PLAN: This is a 77-year-old female with cervical spondylosis, cervical degenerative disc disease, cervical facet arthropathy status post right-sided cervical medial branch block at C3 through C6, patient will continue her current medications, patient will follow approximately 1 to 2 weeks for reevaluation.
[2022-12-13 13:32] LABS: Bedside Glucose 101 mg/dL (74-106)
== END 2022-12-13 14:41 | disposition home or self-care (01) ==
LOC: SDC 11:47 → AC 11:54
PROVIDERS: PCP Internal Medicine; Referring Provider Anesthesiology Pain Medicine; Visit Provider Anesthesiology Pain Medicine
PROC: 3E0S3BZ Introduction of Anesthetic Agent into Epidural Space, Percutaneous Approach (ICD-10-PCS; CPT 62322; principal; 2022-12-13 13:25)
DX: M47.812 Spondylosis without myelopathy or radiculopathy, cervical region (principal); M46.92 Unspecified inflammatory spondylopathy, cervical region; E11.9 Type 2 diabetes mellitus without complications; I10 Essential (primary) hypertension; E78.5 Hyperlipidemia, unspecified; M50.30 Other cervical disc degeneration, unspecified cervical region; F32.A Depression, unspecified; F41.9 Anxiety disorder, unspecified; E55.9 Vitamin D deficiency, unspecified; Z79.82 Long term (current) use of aspirin; Z79.84 Long term (current) use of oral hypoglycemic drugs; Z79.899 Other long term (current) drug therapy; Z87.891 Personal history of nicotine dependence
CPT/HCPCS: 64491; 64492; 01992; 64490; 72040; 82962; J7120; A4216

== ENCOUNTER 2023-01-24 09:38 | Day surgery (SDC) | payer MEDICARE, SELFPAY ==
[2023-01-24] VITALS (8 sets, daily range): BP systolic 129–152; BP diastolic 53–69; PULSE 61–69; RESP 16; TEMP 36.3–37; O2SAT 95–99; BMI 26.6
--- NOTE | 2023-01-24 10:10 | RAD_ITS ---
PROCEDURE: Cervical medial branch nerve block. DATE OF EXAMINATION: January 24, 2023 INDICATION: Female, 77 years old. Chronic neck pain. FLUOROSCOPY TIME (if supplied): 11 seconds. 4 images are submitted RAD/Cerv Spine 2 or 3 Views IMPRESSION: Intraoperative images are provided for intraforaminal needle positioning on the right at C3-4, C4-5, and C5-6. Electronically Signed: Quique Gr MD at 13:17 EDT Reading Location ID and State: [id number] / Unknown , Service support ,
[2023-01-24] MEDS: Lactated Ringers 1,000 ML 15 ML IV (10:27)
[2023-01-24] MEDS: MethylPREDNISolone Acetate 80 MG/ML Vial (10:52)
--- NOTE | 2023-01-24 10:55 | OP.PCM_ITS ---
Report of Operation Date of Procedure: 01/24/23 Description of Surgical Findings:: PREOPERATIVE DIAGNOSIS: Cervical spondylosis, cervical degenerative disc disease, cervical facet arthropathy POSTOPERATIVE DIAGNOSIS: Cervical spondylosis, cervical degenerative disc disease, cervical facet arthropathy PROCEDURE PERFORMED: Right-sided cervical medial branch block at C3, C4, C5, and C6. ANESTHESIA: MAC. BLOOD LOSS: Minimal. COMPLICATIONS: None. DESCRIPTION OF PROCEDURE: History and physical of today was reviewed. Risks and benefits of the procedure were explained. The patient understood and agreed to proceed. Informed consent was obtained. IV inserted per routine protocol. The patient was taken to the operating room and placed in the prone position with a pillow positioned underneath the chest. The neck area was prepped and draped in a sterile fashion using iodine x3. Under fluoroscopy guidance on an AP view, the C3 through C6 vertebral bodies were visualized at approximately 10- degree angle, starting on the right C3, ending on the right C6, passing through the C4 and C5. Using a 25-gauge 3-1/2-inch spinal needle, the needle was advanced via the skin. The tip of the needle was maneuvered and directed towards the epiphyseal junction of each corresponding vertebra. Once the tip of the needle was at the vicinity of the medial branch, the needle was pulled approximately 2 mm off the bone. After negative aspiration of blood or CSF and confirmation on AP, oblique as well as lateral view, a total of 4 mL of preservative-free 0.25% Marcaine with 80 mg of Depo-Medrol was injected in divided doses between those four levels. The needles were then removed intact. The patient experienced no sign or symptoms of intrathecal or intravascular injection. The patient experienced no paresthesia. The procedure was completed without any apparent difficulty or any complications. The patient appeared to tolerate it well. ASSESSMENT AND PLAN: This is a 77-year-old female with cervical spondylosis, cervical degenerative disc disease, cervical facet arthropathy status post right-sided cervical medial branch block at C3-C6, patient will continue her current medications, patient will follow up in approximately 2 weeks for reevaluation.
[2023-01-24 10:58] LABS: Bedside Glucose 94 mg/dL (74-106)
== END 2023-01-24 12:07 | disposition home or self-care (01) ==
LOC: SDC 09:38 → AC 09:44
PROVIDERS: PCP Internal Medicine; Referring Provider Anesthesiology Pain Medicine; Visit Provider Anesthesiology Pain Medicine
PROC: 3E0S3BZ Introduction of Anesthetic Agent into Epidural Space, Percutaneous Approach (ICD-10-PCS; CPT 62322; principal; 2023-01-24 11:05)
DX: M47.812 Spondylosis without myelopathy or radiculopathy, cervical region (principal); M46.92 Unspecified inflammatory spondylopathy, cervical region; E11.9 Type 2 diabetes mellitus without complications; M50.10 Cervical disc disorder with radiculopathy, unspecified cervical region; M48.02 Spinal stenosis, cervical region; M50.30 Other cervical disc degeneration, unspecified cervical region; I10 Essential (primary) hypertension; K21.9 Gastro-esophageal reflux disease without esophagitis; E55.9 Vitamin D deficiency, unspecified; Z79.82 Long term (current) use of aspirin; Z79.899 Other long term (current) drug therapy; Z79.84 Long term (current) use of oral hypoglycemic drugs; Z87.891 Personal history of nicotine dependence
CPT/HCPCS: 64491; 01992; 64490; 72040; 82962; J7120

== ENCOUNTER 2023-03-28 06:55 | Day surgery (SDC) | payer MEDICARE, SELFPAY ==
[2023-03-28] VITALS (7 sets, daily range): BP systolic 105–149; BP diastolic 55–85; PULSE 68–78; RESP 16; TEMP 36.4–36.7; O2SAT 94–98; BMI 27.4
[2023-03-28] MEDS: Lactated Ringers 1,000 ML 15 ML IV (07:28)
--- NOTE | 2023-03-28 07:30 | RAD_ITS ---
PROCEDURE: Right C3-C6 radiofrequency ablation. DATE OF EXAMINATION: March 28, 2023. INDICATION: Female, 77 years old. Chronic neck pain. FLUOROSCOPY TIME (if supplied): (21 seconds) minutes/seconds. 1.5 mGy. 8 spot images were obtained. RAD/Cerv Spine Obl/Flex/Ext Comp IMPRESSION: Intraoperative imaging provided for right C3-C6 radiofrequency ablation. Electronically Signed: Matteo Mccollum MD at 15:15 EDT ,
[2023-03-28] MEDS: Lidocaine 1% (30 ml sdv) 30 ML Vial (08:35)
[2023-03-28] MEDS: MethylPREDNISolone Acetate 40 MG/ML Vial IM (08:37)
--- NOTE | 2023-03-28 08:44 | PCM.OPRPT ---
Report of Operation Date of Procedure: 03/28/23 Description of Surgical Findings:: PREOPERATIVE DIAGNOSIS: Cervical spondylosis, cervical degenerative disc disease, cervical facet arthropathy POSTOPERATIVE DIAGNOSIS:Cervical spondylosis, cervical degenerative disc disease, cervical facet arthropathy PROCEDURE PERFORMED: Right sided cervical radiofrequency ablation of the medial branch at C3, C4, C5, C6. ANESTHESIA: MAC. BLOOD LOSS: Minimal. COMPLICATIONS: None. DESCRIPTION OF PROCEDURE: History and physical of today was reviewed. Risks and benefits of the procedure were explained. The patient understood and agreed to proceed. Informed consent was obtained. IV inserted per routine protocol. The patient was taken to the operating room and placed in the prone position with a pillow positioned underneath the chest. The neck area was prepped and draped in a sterile fashion using iodine x3. Under fluoroscopy guidance on an AP view, the C3 through C6 vertebral bodies were visualized. The skin and subcutaneous tissue was anesthetized with approximately 10 mL of 1% lidocaine using a 25-gauge regular needle. Under direct visualization on fluoroscopy on a lateral view, using a 21-gauge 10-cm with a 10-mm curved active-tip radiofrequency ablation needle, the needle was passed through the skin. The tip of the needle was maneuvered and directed towards the epiphyseal junction of each corresponding vertebra, starting on the right C3, ending on the right C6, passing through the C4 and C5. Once the tip of the needle was at the vicinity of the medial branch and at the middle of the trapezoid on the lateral view, the stylette of each needle was then removed. After negative aspiration of blood or CSF and confirmation on AP, oblique as well as lateral view, radiofrequency ablation probe was then inserted at each level. Impedance was then recorded at C3 to be 312 ohm, at C4 to be 286 ohm, at C5 to be 238 ohm, and at C6 to be 238 ohm. Motor-evoked potential was then initiated to 1.5 volt without any motor response to each corresponding level or the right arm. The probe was then removed intact and a total of 4 mL of preservative-free 1% lidocaine was injected in divided doses between those four levels after negative aspiration of blood or CSF. After repeated confirmation, the radiofrequency ablation probe was then inserted and after repeated confirmation on AP, oblique as well as lateral view, radiofrequency ablation was then initiated to approximately 80 degree Celsius for 60 second at each level. Once concluded, the probe was then removed intact. A total of 4 mL of preservative-free 0.25% Marcaine with 40 mg of Depo-Medrol was injected in divided doses between those four levels. The needles were then removed intact. The patient experienced no sign or symptoms of intrathecal or intravascular injection. The patient experienced no paresthesia. The procedure was completed without any apparent difficulty or any complications. The patient appeared to tolerate it well. Sensory as well as motor exam was unchanged from prior to the procedure. ASSESSMENT AND PLAN: This is a 77-year-old female with cervical spondylosis, cervical degenerative disc disease, cervical facet arthropathy status post right-sided cervical radiofrequency ablation of the medial branch C3-C6, patient will continue her current medications, patient will follow up in approximately 2 weeks for reevaluation.
== END 2023-03-28 10:05 | disposition home or self-care (01) ==
LOC: SDC 06:58 → AC 06:58
PROVIDERS: PCP Internal Medicine; Referring Provider Anesthesiology Pain Medicine; Visit Provider Anesthesiology Pain Medicine
PROC: (CPT 64633; principal; 2023-03-28 08:25)
DX: M47.812 Spondylosis without myelopathy or radiculopathy, cervical region (principal); M46.92 Unspecified inflammatory spondylopathy, cervical region; E11.9 Type 2 diabetes mellitus without complications; M50.30 Other cervical disc degeneration, unspecified cervical region; E78.5 Hyperlipidemia, unspecified; K21.9 Gastro-esophageal reflux disease without esophagitis; F32.A Depression, unspecified; F41.9 Anxiety disorder, unspecified; M19.90 Unspecified osteoarthritis, unspecified site; Z87.891 Personal history of nicotine dependence; Z79.84 Long term (current) use of oral hypoglycemic drugs; Z79.899 Other long term (current) drug therapy; Z79.82 Long term (current) use of aspirin
CPT/HCPCS: 64633; 01992; 72052; 76000; J7120

== ENCOUNTER → 2023-09-05 | Outpatient (CLI) | payer MEDICARE, SELFPAY ==
--- NOTE | 2023-09-05 10:15 | MRI_ITS ---
EXAM: MR CERVICAL SPINE WITHOUT INTRAVENOUS CONTRAST CLINICAL INDICATION: CERVICAL DISC DISEASE TECHNIQUE: Multiplanar and multisequence MR images of the cervical spine without intravenous contrast were performed. COMPARISON: No relevant prior studies available. 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 Mild anterolisthesis of C2 upon C3, moderate anterolisthesis of C3 upon C4, and mild anterolisthesis of C4 upon C5. Overall straightening of the expected cervical lordosis. Multilevel facet arthrosis, uncovertebral joint arthrosis, and endplate osteophytosis. Apparent ankylosis of the facet joints between C4 and C5. No evidence of an acute fracture or traumatic subluxation is identified at this time. There is moderate narrowing of the spinal canal at the level of C2 in part due to pannus formation and posterior angulation of the odontoid. There is degenerative anterolisthesis of C7 upon T1. There is diffuse parenchymal atrophy insofar seen and there is apparent T2 and STIR hyperintensity in the periventricular white matter suggesting chronic microvascular ischemic changes. SPINAL CORD: Focal intramedullary signal abnormality at the level of C6 with apparent volume loss in the spinal cord from C5 through C7 suggesting myelomalacia. Multilevel mass effect upon the spinal cord. SOFT TISSUES: No significant abnormality. No prevertebral soft tissue swelling. LYMPH NODES: No significant abnormality. There is no cervical adenopathy. DISCS/SPINAL CANAL/NEURAL FORAMINA: C2-C3: Disc uncovering/pseudobulge. Mild spinal canal stenosis. No significant neural foraminal narrowing. C3-C4: Disc uncovering/pseudobulge and moderate facet and uncovertebral joint arthrosis with moderate left and mild right neural foraminal narrowing and moderate spinal canal stenosis exacerbated by ligamentum flavum thickening and/or redundancy. C4-C5: Mild disc uncovering/pseudobulge and moderate facet and uncovertebral joint arthrosis. Mild spinal canal stenosis and mild bilateral neural foraminal narrowing. C5-C6: Disc height loss and desiccation. Central disc herniation superimposed upon a disc bulge and moderate facet and uncovertebral joint arthrosis. Moderate left greater than right neural foraminal narrowing and moderate to severe spinal canal stenosis with mass effect upon the ventral spinal cord. C6-C7: Disc height loss and disc desiccation. Disc bulge with superimposed central disc herniation resulting in moderate spinal canal stenosis with mild mass effect upon the spinal cord. Facet and uncovertebral joint arthrosis with moderate to severe bilateral neural foraminal narrowing. C7-T1: Disc uncovering. Ligamentum flavum thickening and/or redundancy. Mild spinal canal stenosis. Facet arthrosis contributes to moderate bilateral neural foraminal narrowing. OTHER FINDINGS: Degenerative changes are partially visualized in the upper thoracic spine with multilevel disc herniations and multilevel spinal canal stenosis. MRI/Spine Cervical (Routine) IMPRESSION: 1. Focal intramedullary signal abnormality at the level of C6 with apparent volume loss in the spinal cord from C5 through C7 suggesting myelomalacia. This likely due to chronic spinal cord compression. 2. 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 3. Extensive multilevel degenerative changes resulting in multilevel spinal canal and neural foraminal stenosis. See details above. Electronically Signed: Сергей Owen DO at 23:58 EST ,
== END | disposition home or self-care (01) ==
PROVIDERS: PCP Internal Medicine; Referring Provider Clinical Nurse Specialist Adult Health; Visit Provider Clinical Nurse Specialist Adult Health
DX: M50.30 Other cervical disc degeneration, unspecified cervical region (principal)
CPT/HCPCS: 72141

== ENCOUNTER 2024-07-16 06:03 | Day surgery (SDC) | payer MEDICARE, SELFPAY ==
[2024-07-16] VITALS (8 sets, daily range): BP systolic 116–135; BP diastolic 54–79; PULSE 69–75; RESP 15–17; TEMP 36.2–36.6; O2SAT 93–97; BMI 27.3
--- NOTE | 2024-07-16 06:46 | PRE.ANES_ITS ---
ASA Classification* ASA Classification ASA Classification: 2 Assessment & Plan Anesthesia* Anesthesia Assessment Anesthesia Assessment: Discussed sedation and/or anesthesia options, risks, benefits, and alternatives with patient/parents/legal guardian/POA. Questions invited. The patient/parents/legal guardian/POA seems to understand and agrees to proceed with anesthesia plan. Reviewed the physical assessment, medical history, allergy history and patient home medications list prior to surgery/procedure/anesthetic and documented any changes. Performed airway and anesthesia risk assessments. Anesthesia Type Anesthesia Type: MAC Anesthesia Focused Assessment* Temperature: 97.8 F Pulse Rate: 69 Blood Pressure: 135/75 Respiratory Rate: 15 Pulse Ox: 97 Airway Assessment Mouth opens: >3 cm Mallampati Score: II Focused Labs Anesthesia Preop lab: CBC WBC 9.4 K/mm3 (4.4-11.0) 09/19/22 12:51 RBC 4.13 M/mm3 (4.2-5.4) L 09/19/22 12:51 Hgb 12.6 g/dL (12.0-15.0) 09/19/22 12:51 Hct 38.7 % (37-47) 09/19/22 12:51 Plt Count 254 K/mm3 (150-450) 09/19/22 12:51 CHEMISTRY Potassium 4.2 mmol/L (3.5-5.1) 09/19/22 12:51 Sodium 141 mmol/L (136-145) 09/19/22 12:51 BUN 20 mg/dL (7-18) H 09/19/22 12:51 Creatinine 1.15 mg/dL (0.55-1.02) H 09/19/22 12:51 Glucose 112 mg/dL (74-106) H 09/19/22 12:51 POC Glucose 94 mg/dL (74-106) 01/24/23 10:14 COAG Pre-Assessment Diagnosis/Proposed Procedure Planned Operative Procedure(s): rt cervical RFA medial branch c3,c4,c5,c6 Anesthesia History Anesthesia 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 When Was Last Pacemaker Check QUESTION #4 FULL TEXT: You/Your Family Experience fever (hyperthermia) with Anesthesia Last Oral Intake Last Oral intake: Last Oral Intake NPO since 04:30 07/16/24 06:33 Meds taken in AM with sips of Yes 07/16/24 06:33 water? Meds patient instructed to losartan, citalopram 07/16/24 06:33 take am of surgery PONV PONV - land development manager: PONV - land development manager Female HX of Motion Sickness HX of N/V After Surgery Non-Smoker Duration of Surgery greater than 60 minutes Number of Risk Factors PONV Score Height & Weight Height & Weight: Anesthesia: Height & Weight Height 5 ft 07/16/24 06:33 Weight: 63.4 kg 07/16/24 06:33 Body Mass Index (BMI) 27.3 07/16/24 06:33 Respiratory Assessment Respiratory Assessment - land development manager: Respiratory Tract Infection Hx - land development manager Hx Respiratory Tract Infection STOP Sleep Apnea STOP Sleep Apnea - land development manager: STOP Sleep Apnea - land development manager Hx Hypertension Yes 06/28/22 15:05 Hx Sleep Apnea No 12/13/22 13:30 CPAP No 01/24/23 11:05 BIPAP Do you snore loudly (louder than talking or can be heard Do you often feel tired/ fatigued/ sleepy during daytime? Has anyone observed you stop breathing during sleep? STOP Results QUESTION #5 FULL TEXT : Do you snore loudly (louder than talking or can be heard through closed doors)? 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 Specify any problems Hx of Preganancy in last 3 Months Nurse Filling Out Transfusion & Questions: Date: Time: Patient unable to answer at this time (ie. confused, unrespo /Reproduction History /Reproductive History - land development manager: /Reproductive Hx- land development manager Hx Now Gestational Age (in weeks): EDC: Hx Hx Para Hx Section SAB PFSH Medical History Arthritis Vitamin D deficiency Depression Anxiety Chronic GERD Ventral hernia without obstruction or gangrene Abdominal pain, epigastric Osteoarthritis Hyperlipidemia Gastroesophageal reflux disease Type 2 diabetes mellitus Benign essential hypertension Home Medications ?Medication ?Instructions ?Recorded ?Last Taken ?Type aspirin 81 mg tablet,delayed 81 mg PO ONCE 09/16/17 07/15/24 History release (Adult Low Dose Aspirin) cholecalciferol (vitamin D3) 125 5,000 unit PO ONCE 09/16/17 07/15/24 History mcg (5,000 unit) capsule citalopram 20 mg tablet (Celexa) 20 mg PO QDAY 09/16/17 07/16/24 History cranberry extract 500 mg capsule 500 mg PO QDAY 09/16/17 03/27/23 History (Cranberry Concentrate) lorazepam 0.5 mg tablet 0.5 mg PO QDAY PRN Anxiety 09/16/17 03/27/23 History losartan 100 1 tab PO QDAY 09/16/17 07/16/24 History mg-hydrochlorothiazide 25 mg tablet metoprolol tartrate 25 mg tablet 25 mg PO ONCE 09/16/17 07/15/24 History multivitamin 1 tab PO QDAY 09/16/17 07/15/24 History omega-3 fatty acids 1,000 mg 1,000 mg PO BID 09/16/17 07/15/24 History capsule (Fish Oil Concentrate) omeprazole 20 mg tablet,delayed 20 mg PO QDAY 09/16/17 07/15/24 History release simvastatin 40 mg tablet 40 mg PO QODAY 09/16/17 07/15/24 History meclizine 25 mg tablet 25 mg PO Q8H PRN PRN Dizziness #15 09/19/22 Unknown Rx tabs oxycodone-acetaminophen 5 mg-325 1 tab PO PRN pain 03/28/23 03/27/23 History mg tablet (Percocet) gabapentin 100 mg capsule 400 mg PO .4xday 07/16/24 07/15/24 History Allergy/AdvReac Type Severity Reaction Status Date / Time hydromorphone (From Dilaudid) Allergy Unknown Unknown Verified 07/16/24 06:29 nitrofurantoin (From Allergy Unknown got really Verified 07/16/24 06:29 Macrodantin) hot and sweaty Family History Mother Arthritis Diabetes Heart disease Hypertension CVA (cerebral vascular accident) High cholesterol Father Arthritis Heart disease High cholesterol Hypertension Daughter Kidney disease Diabetes Surgical History Status post left knee replacement S/P cholecystectomy S/P tubal ligation S/P hysterectomy S/P appendectomy Social History Smoking Status: Former smoker second hand exposure: No alcohol intake: never substance use type: does not use caffeine: Yes what type of physical activity do you participate in: none frequency: does not exercise seatbelt use: always Review of Systems (Anesthesia) ROS Narrative System reviewed and no additional complaints, except as documented.
[2024-07-16 07:46] LABS: Bedside Glucose 113 mg/dL (74-106)
[2024-07-16] MEDS: MethylPREDNISolone Acetate 40 MG/ML Vial (08:00)
[2024-07-16] MEDS: Bupivacaine 0.25% 30 ML Vial (08:01)
[2024-07-16] MEDS: Lidocaine 1% (30 ml sdv) 30 ML Vial (08:02)
--- NOTE | 2024-07-16 08:03 | RAD_ITS ---
PROCEDURE: Right-sided Radiofrequency ablation from C3 to C6 DATE OF EXAMINATION: 07/16/2024 INDICATION: Female, 78 years old. Neck pain and stiffness PHYSICIAN: Felipe Worrell MD FLUOROSCOPY TIME (if supplied): (21.2) seconds, 9 images obtained RADIATION DOSAGE (If Supplied By Facility): CTDIvol = ( 4.15 ) mGy, DLP = ( ) mGycm CONSENT: The risks, benefits and alternatives to the procedure were explained to the patient, and the patient agreed to the procedure and signed the consent. SEDATION: Local STERILE BARRIER TECHNIQUE: The following sterile barrier precautions were used during the procedure: hand hygiene; use of 2% chlorhexidine aseptic; use of a cap, mask, sterile gown, sterile gloves, sterile full body drape, and a large sterile sheet. PROCEDURE/TECHNIQUE: (All elements of maximal sterile barrier technique followed, including US elements as applicable) The risks, benefits, and alternatives to the procedure were explained to patient, and the patient agreed to the procedure and signed a consent form for the procedure. A timeout was performed to confirm the patient''s identity, the type of procedure, to be performed and the site of entry. No intraoperative complications noted during radiofrequency ablation on the right side from C3 to C6. RAD/Cerv Spine 4 or 5 Views IMPRESSION: No intraoperative complications noted during radiofrequency ablation Electronically Signed: Quique Salmeron MD at 10:57 EST ,
--- NOTE | 2024-07-16 08:26 | PCM.OPRPT ---
Operative Report (Standard) Operative Information Date of Procedure: 07/16/24 Pre-Operative Diagnosis: 1 Post-Operative Diagnosis: 1 Surgery/Procedure Performed: 1 clerk supervisor: No Type of Anesthesia: MAC and Topical Anesth RN Documented Start/Stop Times: Operation Date: 07/16/24 07:30 Case Time Into Pre-Op 07/16/24 06:11 Anesthesia Start 07/16/24 07:57 Into Room 07/16/24 07:57 Procedure Start 07/16/24 08:03 Procedure End 07/16/24 08:21 Procedure Start Time: 08:26 Procedure Stop Time: 08:26 Select all DRAINS/GRAFTS/IMPLANTS that apply: None Estimated Blood Loss: 1 Specimen collected: No Description of surgery: PREOPERATIVE DIAGNOSIS: Cervical spondylosis, cervical degenerative disc disease, cervical facet arthropathy POSTOPERATIVE DIAGNOSIS:Cervical spondylosis, cervical degenerative disc disease, cervical facet arthropathy PROCEDURE PERFORMED: Right sided cervical radiofrequency ablation of the medial branch at C3, C4, C5, C6. ANESTHESIA: MAC. BLOOD LOSS: Minimal. COMPLICATIONS: None. DESCRIPTION OF PROCEDURE: History and physical of today was reviewed. Risks and benefits of the procedure were explained. The patient understood and agreed to proceed. Informed consent was obtained. IV inserted per routine protocol. The patient was taken to the operating room and placed in the prone position with a pillow positioned underneath the chest. The neck area was prepped and draped in a sterile fashion using iodine x3. Under fluoroscopy guidance on an AP view, the C3 through C6 vertebral bodies were visualized. The skin and subcutaneous tissue was anesthetized with approximately 10 mL of 1% lidocaine using a 25-gauge regular needle. Under direct visualization on fluoroscopy on a lateral view, using a 21-gauge 10-cm with a 10-mm curved active-tip radiofrequency ablation needle, the needle was passed through the skin. The tip of the needle was maneuvered and directed towards the epiphyseal junction of each corresponding vertebra, starting on the right C3, ending on the right C6, passing through the C4 and C5. Once the tip of the needle was at the vicinity of the medial branch and at the middle of the trapezoid on the lateral view, the stylette of each needle was then removed. After negative aspiration of blood or CSF and confirmation on AP, oblique as well as lateral view, radiofrequency ablation probe was then inserted at each level. Impedance was then recorded at C3 to be 299 ohm, at C4 to be 289 ohm, at C5 to be 380 ohm, and at C6 to be 313 ohm. Motor-evoked potential was then initiated to 1.5 volt without any motor response to each corresponding level or the right arm. The probe was then removed intact and a total of 4 mL of preservative-free 1% lidocaine was injected in divided doses between those four levels after negative aspiration of blood or CSF. After repeated confirmation, the radiofrequency ablation probe was then inserted and after repeated confirmation on AP, oblique as well as lateral view, radiofrequency ablation was then initiated to approximately 80 degree Celsius for 60 second at each level. Once concluded, the probe was then removed intact. A total of 4 mL of preservative-free 0.25% Marcaine with 40 mg of Depo-Medrol was injected in divided doses between those four levels. The needles were then removed intact. The patient experienced no sign or symptoms of intrathecal or intravascular injection. The patient experienced no paresthesia. The procedure was completed without any apparent difficulty or any complications. The patient appeared to tolerate it well. Sensory as well as motor exam was unchanged from prior to the procedure. ASSESSMENT AND PLAN: This is an 78-year-old female with cervical spondylosis, cervical degenerative disc disease, cervical facet arthropathy status post right-sided cervical radiofrequency ablation of the medial branch C3-C6, patient will continue her current medications, patient will follow up in approximately 2 weeks for reevaluation. Surgical Findings: 1 Complications Complications: No Admit VTE Documentation VTE Present on Admission: No VTE Mechan Device Prophylaxis: None
--- NOTE | 2024-07-16 10:20 | PCM.POST.ANE ---
Anesthesia: Postop Eval I Current Vital Signs Temperature: 97.7 F Pulse Rate: 72 Blood Pressure: 125/79 Respiratory Rate: 17 Pulse Ox: 96 Oxygen Delivery Method: Room Air Assessment Airway patent: Yes Spontaneous unlabored respirations: Yes Mental status: Awake and Calm nausea: No Vomiting: No Anesthesia Complication: No Fluid Hydration Crystalloid volume administer (ml): 30 Total IV fluid infused: 30 Progress Note Anesthesia document: Postop Eval 1 completed: Yes
--- NOTE | 2024-07-16 10:40 | POSTOPAN2_ITS ---
Anesthesia Postop Eval I Sum Postop Eval Completion status Anesthesia document: Postop Eval 1 completed: Yes Anesthesia Postop Eval I Summary Anesthesia Postop Eval I Summary: Anesthesia Postop Eval I: Assessment Summary Airway patent Yes 07/16/24 10:21 SENIOR TECHNICAL [email or web address] Spontaneous unlabored Yes 07/16/24 10:21 SENIOR TECHNICAL ARCHITECT.[email or web address] respirations Mental status Awake,Calm 07/16/24 10:21 SENIOR TECHNICAL ARCHITECT.[email or web address] nausea No 07/16/24 10:21 SENIOR TECHNICAL ARCHITECT.[email or web address] Vomiting No 07/16/24 10:21 SENIOR TECHNICAL ARCHITECT.[email or web address] Anesthesia Postop Eval I: Fluid Summary Crystalloid volume administer 30 07/16/24 10:21 SENIOR TECHNICAL [email or web address].[email or web address] (ml) Colloids volume administered ( ml) Blood Product volume administered (ml) Total IV fluid infused 30 07/16/24 10:21 SENIOR TECHNICAL ARCHITECT.[email or web address] Anesthesia Postop Eval I: Summary Notes Anesthesia Complication No 07/16/24 10:21 SENIOR TECHNICAL ARCHITECT.[email or web address] Anesthesia Complication Comment: Post-operative progress note Anesthesia: Postop Eval II Evaluation Mental status: Awake Pain Level: 0 nausea: No Vomiting: No
--- NOTE | 2024-07-16 10:40 | PCM.POSTANE2 ---
Anesthesia Postop Eval I Sum Postop Eval Completion status Anesthesia document: Postop Eval 1 completed: Yes Anesthesia Postop Eval I Summary Anesthesia Postop Eval I Summary: Anesthesia Postop Eval I: Assessment Summary Airway patent Yes 07/16/24 10:21 UTILIZATION REVIEW [email or web address] Spontaneous unlabored Yes 07/16/24 10:21 UTILIZATION REVIEW COORDINATOR.[email or web address] respirations Mental status Awake,Calm 07/16/24 10:21 UTILIZATION REVIEW COORDINATOR.[email or web address] nausea No 07/16/24 10:21 UTILIZATION REVIEW [email or web address].[email or web address] Vomiting No 07/16/24 10:21 UTILIZATION REVIEW [email or web address].[email or web address] Anesthesia Postop Eval I: Fluid Summary Crystalloid volume administer 30 07/16/24 10:21 UTILIZATION REVIEW [email or web address].[email or web address] (ml) Colloids volume administered ( ml) Blood Product volume administered (ml) Total IV fluid infused 30 07/16/24 10:21 UTILIZATION REVIEW [email or web address].[email or web address] Anesthesia Postop Eval I: Summary Notes Anesthesia Complication No 07/16/24 10:21 UTILIZATION REVIEW COORDINATOR.[email or web address] Anesthesia Complication Comment: Post-operative progress note Anesthesia: Postop Eval II Evaluation Mental status: Awake Pain Level: 0 nausea: No Vomiting: No
== END 2024-07-16 09:31 | disposition home or self-care (01) ==
LOC: SDC 06:04 → AC 06:07
PROVIDERS: PCP Internal Medicine; Referring Provider Anesthesiology Pain Medicine; Visit Provider Anesthesiology Pain Medicine
PROC: (CPT 64633; principal; 2024-07-16 07:25)
DX: M47.812 Spondylosis without myelopathy or radiculopathy, cervical region (principal); E11.9 Type 2 diabetes mellitus without complications; M50.30 Other cervical disc degeneration, unspecified cervical region; M46.92 Unspecified inflammatory spondylopathy, cervical region; I10 Essential (primary) hypertension; F41.9 Anxiety disorder, unspecified; F32.A Depression, unspecified; K21.9 Gastro-esophageal reflux disease without esophagitis; Z79.899 Other long term (current) drug therapy; Z79.82 Long term (current) use of aspirin; Z87.891 Personal history of nicotine dependence
CPT/HCPCS: 64633; 64634; 01992; 72050; 76000; 82962; A4216

== ENCOUNTER → 2024-08-22 | Outpatient (CLI) | payer MEDICARE, SELFPAY ==
--- NOTE | 2024-08-22 13:42 | NEURO ---
NCS and/or EMG Patient Report Ordering Doctor: Magi Blackwood DATE OF SERVICE: 08/22/24 Coleen presents for electrodiagnostic testing of the right upper limb. She reports numbness in the right middle finger. Electrodiagnostic findings: Right median motor nerve demonstrates normal distal latency, amplitude and conduction velocity. Right ulnar motor nerve demonstrates normal distal latency and amplitude with a drop in conduction velocity across the elbow. Prolonged right median sensory latency at the wrist. Normal right median and right ulnar F-wave. Needle EMG testing was performed in the right upper limb. All muscles tested showed no evidence of denervation with normal motor unit action potentials. Electrodiagnostic impression: This is an abnormal study. 1. Electrodiagnostic findings suggestive of right-sided median mononeuropathy. This consistent with a mild right carpal tunnel syndrome. 2. Electrodiagnostic findings suggestive of right sided ulnar neuropathy. This is consistent with a mild right cubital tunnel syndrome. Multi Select Codes Neurology Neurology Interp Codes: 21996-88 Musc test done w/n test comp (interp) and 11385-69 Nrv cndj test 7-8 studies (interp)
[2024-08-22 14:54] LABS: Absolute Lymphocyte Count 2.53 X10^3/uL (0.83-4.51); Absolute Neutrophil Count 4.1 X10^3/uL (2.0-7.7); Basophil# 0.07 X10^3/uL; Basophil% 0.9 % (0-1); Eosinophil# 0.31 X10^3/uL; Hematocrit 39.4 % (37-47); Hemoglobin 12.6 g/dL (12.0-15.0); Lymphocyte # 2.53 X10^3/ul (0.83-4.51); Lymphocyte % 32.4 % (19-41); Mean Corpuscular Hgb 29.9 pg (27.0-32.0); Mean Corpuscular Volume 93.6 fL (81-99); Mean Platelet Vol. 9.9 fl (6.2-12.0); Monocyte# 0.74 X10^3/uL; Monocyte% 9.5 % (0-10); NRBC Flagged by Analyzer 0 % (0-5); Neutrophil # 4.12 X10^3/uL (2.7-7.7); Neutrophil % 52.8 % (47-70); Platelet Count 201 K/mm3 (150-450); RBC Distribution Width CV 13.8 % (11.6-14.6); RBC Distribution Width SD 46.8 fl (35.1-43.9); Red Blood Count 4.21 M/mm3 (4.2-5.4); White Blood Count 7.8 K/mm3 (4.4-11.0)
[2024-08-22 15:05] LABS: Erythrocyte Sedimentation Rate 7 mm/hr (0-30)
[2024-08-22 15:36] LABS: CRP < 2.90 mg/L (0.0-3.0); Rheumatoid Factor < 10.0 IU/mL (<15); Uric Acid 6.2 mg/dL (2.6-6.0)
[2024-08-24 10:08] LABS: CCP IgG Antibodies 2 units (0-19)
[2024-08-24 11:08] LABS: ANTINUCLEAR ANTIBODIES DIRECT Negative (Negative)
== END | disposition home or self-care (01) ==
PROVIDERS: PCP Internal Medicine; Referring Provider Physician Assistant Surgical; Visit Provider Physician Assistant Surgical
DX: R20.2 Paresthesia of skin (principal)
CPT/HCPCS: 36415; 84550; 85025; 85652; 86038; 86140; 86200; 86431; 95886; 95910

== ENCOUNTER 2024-09-21 01:38 | Emergency (ER) | payer MEDICARE, SELFPAY ==
[2024-09-21 01:42] VITALS: BP 191/78; PULSE 70; RESP 18; TEMP 36.8; O2SAT 96; BMI 27.2
--- NOTE | 2024-09-21 02:08 | EX.ED.DYSGE1 ---
HPI History of Present Illness Chief Complaint: Lower Extremity Injury Informant: patient and spouse/S.O. Narrative Narrative: Patient is an 79-year-old female with past medical history of hypertension hyperlipidemia type 2 diabetes and anxiety and depression. She states that in the last 1 to 2 days she has noticed mild swelling redness and pain to the inner aspect of her left thigh. She states that there was no recent trauma. She denies any fevers or chills. She denies any recent surgery travel hormone use or previous history of DVT/PE. She states there is no associated chest pain or shortness of breath. However now that she has noticed the changes to her left thigh she does have concern that the changes are due to a blood clot and with this comes in for evaluation [facility] Medical History (Updated 09/21/24 @ 03:[address] Lamin Salgado, ) Arthritis Vitamin D deficiency Depression Anxiety Chronic GERD Ventral hernia without obstruction or gangrene Abdominal pain, epigastric Osteoarthritis Hyperlipidemia Gastroesophageal reflux disease Type 2 diabetes mellitus Benign essential hypertension Home Medications ?Medication ?Instructions ?Recorded ?Last Taken ?Type aspirin 81 mg tablet,delayed 81 mg PO ONCE 09/16/17 07/15/24 History release (Adult Low Dose Aspirin) cholecalciferol (vitamin D3) 125 5,000 unit PO ONCE 09/16/17 07/15/24 History mcg (5,000 unit) capsule citalopram 20 mg tablet (Celexa) 20 mg PO QDAY 09/16/17 07/16/24 History cranberry extract 500 mg capsule 500 mg PO QDAY 09/16/17 03/27/23 History (Cranberry Concentrate) losartan 100 1 tab PO QDAY 09/16/17 07/16/24 History mg-hydrochlorothiazide 25 mg tablet metoprolol tartrate 25 mg tablet 25 mg PO ONCE 09/16/17 07/15/24 History multivitamin 1 tab PO QDAY 09/16/17 07/15/24 History omeprazole 20 mg tablet,delayed 20 mg PO QDAY 09/16/17 07/15/24 History release simvastatin 40 mg tablet 40 mg PO QODAY 09/16/17 07/15/24 History oxycodone-acetaminophen 5 mg-325 1 tab PO PRN pain 03/28/23 03/27/23 History mg tablet (Percocet) gabapentin 100 mg capsule 400 mg PO .4xday 07/16/24 07/15/24 History clindamycin HCl 300 mg capsule 300 mg PO 4X/DAY 7 days #28 caps 09/21/24 Unknown Rx Allergy/AdvReac Type Severity Reaction Status Date / Time hydromorphone (From Dilaudid) Allergy Unknown Unknown Verified 07/16/24 06:29 nitrofurantoin (From Allergy Unknown got really Verified 07/16/24 06:29 Macrodantin) hot and sweaty Family History Mother Arthritis Diabetes Heart disease Hypertension CVA (cerebral vascular accident) High cholesterol Father Arthritis Heart disease High cholesterol Hypertension Daughter Kidney disease Diabetes Surgical History Status post left knee replacement S/P cholecystectomy S/P tubal ligation S/P hysterectomy S/P appendectomy Social History Smoking Status: Former smoker second hand exposure: No alcohol intake: never substance use type: does not use caffeine: Yes what type of physical activity do you participate in: none frequency: does not exercise seatbelt use: always ROS ROS ED Constitutional Constitutional ED: Denies chills or fever(s) Eyes Eyes: Denies blurry vision or change in vision ENT ENT ED: Denies sore throat Cardiovascular Cardiovascular: Denies chest pain, palpitations or racing heartbeat Respiratory/Chest Respiratory/Chest: Denies cough or dyspnea Gastrointestinal Gastrointestinal: Denies abdominal pain, diarrhea, nausea or vomiting Musculoskeletal Musculoskeletal: Reports other Details: Positive left thigh pain Integumentary Reports other Details: Positive redness left thigh Neurologic Neurologic: Denies headache(s) Psychiatric Psychiatric: Reports anxiety and depression Hematologic/Lymphatic Hematologic/Lymphatic: Denies easy bleeding or easy bruising EXAM Physical Exam Const Vital Signs: 09/21/24 01:42 Temperature 98.3 F Temperature Source Oral Pulse Rate 70 Respiratory Rate 18 Blood Pressure 191/78 H Blood Pressure Mean 115 Pulse Ox 96 Oxygen Delivery Method Room Air Positive well nourished and well developed General Appearance ED: well developed HEENT HEENT Narrative: Normocephalic atraumatic Eyes PERRL and EOMs intact bilaterally General Eye ED: Negative for scleral icterus Neck supple Resp normal respiratory effort and clear to auscultation bilaterally Cardio regular rate and regular rhythm Rate: other Other Details: Radial and carotid pulses are equal and symmetric Extremity Extremity Narrative: Along the medial portion of the left middle third thigh there is asymmetric erythema and warmth. There is mild tenderness to palpation at this site. There is no obvious abscess formation. No crepitance palpated. No lymphangitic streaking Compartments are soft and compressible going against compartment syndrome Neuro oriented x3, CN's II-XII intact bilaterally and no sensory deficits noted Sensorium / Orientation: alert Psych mental status grossly normal Skin Skin Narrative: Soft tissue changes to the left medial thigh as documented above MDM MDM MDM Narrative Medical decision making narrative: Patient arrived to the ER hypertensive but has a past medical history of this and otherwise with stable vitals. She denies any history of DVT recent travel or surgery or hormone use. However she does have asymmetric redness and swelling to the left medial thigh as documented in the physical exam. Differential diagnosis is for DVT versus cellulitis versus abscess. The patient denies chest pain or shortness of breath she is not hypoxic or tachycardic and there for my concern for a potential pulmonary embolus is low. She is afebrile and denies any recent sick symptoms indicating that if this is cellulitis it is localized and not systemic and therefore do not feel the need for laboratory studies. Her physical exam does not suggest compartment syndrome indicating no need for emergent orthopedic consultation. I cannot perform a venous duplex ultrasound at this time of night and therefore the patient will be given 1.5 mg/kg of Lovenox to protect her in case this is a true DVT in order form to have a venous duplex performed during normal business hours on Tuesday. I will also prescribe clindamycin for the patient to take if the venous duplex is negative indicating the redness is most likely cellulitis in nature. However at this time as she does not have signs of systemic infection or sepsis concern for PE is low I do not feel the need for workup and patient will simply be treated and is otherwise safe for discharge History & Record Review Discussion w/independent historian: Patient and Significant other Discharge Plan Triage Chief Complaint: Lower Extremity Injury ED Provider: Lamin Salgado Dx/Rx/DC Orders Clinical Impression: Left thigh pain, Benign essential hypertension, Type 2 diabetes mellitus, Hyperlipidemia, Anxiety and depression Instructions: DVT Dc Prescriptions: New clindamycin HCl 300 mg capsule 300 mg PO 4X/DAY 7 Days Qty: 28 0RF No Action metoprolol tartrate 25 mg tablet 25 mg PO ONCE omeprazole 20 mg tablet,delayed release (DR/EC) 20 mg PO QDAY losartan-hydrochlorothiazide 100-25 mg tablet 1 tab PO QDAY citalopram [Celexa] 20 mg tablet 20 mg PO QDAY simvastatin 40 mg tablet 40 mg PO QODAY cholecalciferol (vitamin D3) 5,000 unit capsule 5,000 unit PO ONCE aspirin [Adult Low Dose Aspirin] 81 mg tablet,delayed release (DR/EC) 81 mg PO ONCE cranberry extract [Cranberry Concentrate] 500 mg capsule 500 mg PO QDAY multivitamin tablet 1 tab PO QDAY oxycodone-acetaminophen [Percocet] 5-325 mg tablet 1 tab PO PRN gabapentin 100 mg capsule 400 mg PO .4xday Other Ambulatory Orders: Venous Duplex US, Unilateral (Stat) Facility: [facility] - Location: [facility] Ordered By: Dr. Lamin Salgado Primary Care Provider: Senait Hannon Referrals: Senait Hannon DO [Primary Care Provider] - Activity Restrictions/Additional Instructions: Please obtain your outpatient venous duplex study to [facility] if there is or is not a DVT in your left thigh later today as directed. You are given Lovenox which is a blood thinner which will protect you if there is a blood clot. If the venous duplex does not show a blood clot then this is a developing infection known as cellulitis and therefore you will need to fill and take the clindamycin that was prescribed. If you develop chest pain or shortness of breath or have any further concerns please return to the ER for repeat evaluation. Print Language: Belarusian Disposition Disposition: Home, Self Care Discharge Date/Time: 09/21/24 02:35
[2024-09-21] MEDS: LORazepam 1 MG Tablet PO (02:16)
[2024-09-21] MEDS: Enoxaparin 100 MG/ML Syringe SC (02:16)
== END 2024-09-21 02:35 | disposition home or self-care (01) ==
LOC: ED 02:35
PROVIDERS: Emergency Provider Emergency Medicine; PCP Internal Medicine; Visit Provider Emergency Medicine
DX: M79.652 Pain in left thigh (principal); E11.9 Type 2 diabetes mellitus without complications; F41.9 Anxiety disorder, unspecified; E78.5 Hyperlipidemia, unspecified; I10 Essential (primary) hypertension; F32.A Depression, unspecified; Z87.891 Personal history of nicotine dependence; Z79.82 Long term (current) use of aspirin; Z79.899 Other long term (current) drug therapy
CPT/HCPCS: 99282

== ENCOUNTER → 2024-09-21 | Outpatient (CLI) | payer MEDICARE, SELFPAY ==
--- NOTE | 2024-09-21 13:02 | VDLE_ITS ---
Reason For Study Reason For Study: LLE PAIN RIGHT LEFT CFV is compressible, spontaneous, phasic, competent CFV is compressible, spontaneous, phasic, competent, and demonstrates normal augmentation. and demonstrates normal augmentation. Procedure FV is compressible, spontaneous, phasic, competent This is a venous duplex using B-mode, color flow and and demonstrates normal augmentation. spectral Doppler. POP V is compressible, spontaneous, phasic, competent Exam performed in department. and demonstrates normal augmentation. A preliminary report was called and/or faxed to T/P Trunk is compressible. Fredo RN @ [facility]. @ 13:30. PT is instructed to go to PTV is compressible. [facility]. LT PerV is compressible. Acute SVT noted in the left GSV 3.3 cm from the SFJ in the proximal inner thigh area. GSV is compressible from mid thigh to ankle. VL/Venous Duplex US, Unilateral Interpretation Summary Deep veins of the left lower extremity are patent and compressible segmentally. There is no evidence of left lower extremity deep vein thrombosis. Valvular competence appears intact within the p roximal deep venous system on the left . Acute superficial thrombophlebitis is noted in the proximal left great saphenou s vein, though located more than 3.3 centimeters from the left sapheno-femoral junction. The left great saphenous ve in is patent and compressible from the mid-thigh to the ankle. The right common femoral vein is patent and compressibl e . Ordering Physician: Lamin Salgado Referring Physician: Senait Hannon Performed By: Kenya Patel, VIVIAN, RVT
== END | disposition home or self-care (01) ==
LOC: CVS 13:01
PROVIDERS: PCP Internal Medicine; Referring Provider Emergency Medicine; Visit Provider Emergency Medicine
DX: M79.662 Pain in left lower leg (principal)
CPT/HCPCS: 93971

== ENCOUNTER → 2024-10-05 | Outpatient (CLI) | payer MEDICARE, SELFPAY ==
--- NOTE | 2024-10-05 14:37 | VDLE_ITS ---
Reason For Study Reason For Study: HX SVT RIGHT LEFT CFV is compressible, spontaneous, phasic, competent CFV is compressible, spontaneous, phasic, competent, and demonstrates normal augmentation. and demonstrates normal augmentation. Procedure FV is compressible, spontaneous, phasic, competent This is a venous duplex using B-mode, color flow and and demonstrates normal augmentation. spectral Doppler. POP V is compressible, spontaneous, phasic, competent Exam performed in department. and demonstrates normal augmentation. The exam was diagnostic. T/P Trunk is compressible. A preliminary report was called and/or faxed to . PTV is compressible. Jerry office. LT PerV is compressible. Compare to study from 09/21/2024. Acute SVT noted in the left GSV. Thrombus appears to be greater than 5cm distal to SFJ in the proximal inner thigh area. GSV is compressible from mid thigh to ankle. VL/Venous Duplex US, Unilateral Interpretation Summary Acute superficial vein thrombosis noted in left great saphenous vein. Deep veins of the left lower extremity are patent and compressible segmentally. There is no evidence of left lower extremity deep vein thrombosis. Ordering Physician: Senait Hannon Referring Physician: Senait Hannon Performed By: Darron Ann, RVT
== END | disposition home or self-care (01) ==
PROVIDERS: PCP Internal Medicine; Referring Provider Internal Medicine; Visit Provider Internal Medicine
DX: I82.812 Embolism and thrombosis of superficial veins of left lower extremity (principal)
CPT/HCPCS: 93971

== ENCOUNTER → 2024-11-06 | Outpatient (CLI) | payer MEDICARE, SELFPAY ==
--- NOTE | 2024-11-06 13:01 | VDLE_ITS ---
Reason For Study Reason For Study: Hx SVT RIGHT LEFT CFV is compressible, spontaneous, phasic, competent GSV is normal. and demonstrates normal augmentation. CFV is compressible, spontaneous, phasic, competent, Procedure and demonstrates normal augmentation. This is a venous duplex using B-mode, color flow and FV is compressible, spontaneous, phasic, competent spectral Doppler. and demonstrates normal augmentation. Exam performed in department. POP V is compressible, spontaneous, phasic, competent Compared to 10/05/2024. and demonstrates normal augmentation. A preliminary report was called and/or faxed to [facility] Trunk is compressible. Riddhi. PTV is compressible. LT PerV is compressible. VL/Venous Duplex US, Unilateral Interpretation Summary Deep veins of the left lower extremity are patent and compressible segmentally. There is no evidence of left lower extremity deep vein thrombosis. The left great saphenous vein appears patent an d compressible segmentally. Ordering Physician: Senait Hannon Referring Physician: Senait Hannon Performed By: Jane Shields RVT
== END | disposition home or self-care (01) ==
LOC: CVS 12:58
PROVIDERS: PCP Internal Medicine; Referring Provider Internal Medicine; Visit Provider Internal Medicine
DX: I82.812 Embolism and thrombosis of superficial veins of left lower extremity (principal)
CPT/HCPCS: 93971

== ENCOUNTER 2025-02-04 15:36 | Emergency (ER) | payer MEDICARE, SELFPAY ==
[2025-02-04 15:37] VITALS: BP 143/58; PULSE 72; RESP 16; TEMP 36.9; O2SAT 96; BMI 26.7
--- NOTE | 2025-02-04 15:58 | CT_ITS ---
PROCEDURE: BRAIN/HEAD WITHOUT CONTRAST 02/04/2025 REASON FOR EXAM: HEAD INJURY TECHNIQUE: BRAIN/HEAD WITHOUT CONTRAST Coronal and Sagittal reconstruction series were provided. One or more dose reduction techniques were used (e.g., Automated exposure control, adjustment of the mA and/or kV according to patient size, use of iterative reconstruction technique. RADIATION DOSE SUMMARY: DLP: 652 mGycm COMPARISON: none FINDINGS: There is no acute infarct, intracranial hemorrhage, or mass effect. There is no hydrocephalus or significant midline shift. There is mild chronic microvascular ischemic changes and mild parenchymal volume loss. No acute, depressed calvarial fractures. No large scalp hematomas. The paranasal sinuses are clear. CT/Brain/Head without Contrast IMPRESSION: No acute intracranial process. Reading Location: [id number]
--- NOTE | 2025-02-04 16:05 | ED.VIS.FALL ---
HPI HPI - Fall History of Present Illness Chief Complaint: Fall Informant: patient and spouse/S.O. Narrative Narrative: Presents for evaluation and fall head injury left foot injury yesterday 8 PM. Ambulates with a cane at baseline. Diagnosed DVT left leg 5 months ago on Eliquis. Yesterday evening was moving a power strip on the ground when she got dizzy fell back hitting her head no loss of conscious. Injury to her left foot. She is able to ambulate however her foot hurts. She saw specialist doctor today for her hand with Dr. Eckert who is pain management discussed her injuries with her being on Eliquis. He told patient she should been at the ER yesterday. Patient decided to come. No chest pains no back pains. No hip pains. No medications taken for pain today. Left total knee arthroplasty [address] Archibald. Denies headache or neck pain. [facility] Medical History (Updated 02/04/25 @ 17:[address] Andre Sanchez, DO) Arthritis Vitamin D deficiency Depression Anxiety Chronic GERD Ventral hernia without obstruction or gangrene Abdominal pain, epigastric Osteoarthritis Hyperlipidemia Gastroesophageal reflux disease Type 2 diabetes mellitus Benign essential hypertension Home Medications ?Medication ?Instructions ?Recorded ?Last Taken ?Type aspirin 81 mg tablet,delayed 81 mg PO ONCE 09/16/17 07/15/24 History release (Adult Low Dose Aspirin) cholecalciferol (vitamin D3) 125 5,000 unit PO ONCE 09/16/17 07/15/24 History mcg (5,000 unit) capsule citalopram 20 mg tablet (Celexa) 20 mg PO QDAY 09/16/17 07/16/24 History cranberry extract 500 mg capsule 500 mg PO QDAY 09/16/17 03/27/23 History (Cranberry Concentrate) losartan 100 1 tab PO QDAY 09/16/17 07/16/24 History mg-hydrochlorothiazide 25 mg tablet metoprolol tartrate 25 mg tablet 25 mg PO ONCE 09/16/17 07/15/24 History multivitamin 1 tab PO QDAY 09/16/17 07/15/24 History omeprazole 20 mg tablet,delayed 20 mg PO QDAY 09/16/17 07/15/24 History release simvastatin 40 mg tablet 40 mg PO QODAY 09/16/17 07/15/24 History oxycodone-acetaminophen 5 mg-325 1 tab PO PRN pain 03/28/23 03/27/23 History mg tablet (Percocet) gabapentin 100 mg capsule 400 mg PO .4xday 07/16/24 07/15/24 History clindamycin HCl 300 mg capsule 300 mg PO 4X/DAY 7 days #28 caps 09/21/24 Unknown Rx Allergy/AdvReac Type Severity Reaction Status Date / Time hydromorphone (From Dilaudid) Allergy Unknown Unknown Verified 02/04/25 15:40 nitrofurantoin (From Allergy Unknown got really Verified 02/04/25 15:40 Macrodantin) hot and sweaty Family History Mother Arthritis Diabetes Heart disease Hypertension CVA (cerebral vascular accident) High cholesterol Father Arthritis Heart disease High cholesterol Hypertension Daughter Kidney disease Diabetes Surgical History Status post left knee replacement S/P cholecystectomy S/P tubal ligation S/P hysterectomy S/P appendectomy Social History Smoking Status: Former smoker second hand exposure: No alcohol intake: never substance use type: does not use caffeine: Yes what type of physical activity do you participate in: none frequency: does not exercise seatbelt use: always ROS ROS ED Constitutional Constitutional ED: Denies fever(s) Cardiovascular Cardiovascular: Denies chest pain Respiratory/Chest Respiratory/Chest: Denies cough Gastrointestinal Gastrointestinal: Denies diarrhea or vomiting Musculoskeletal Musculoskeletal: Denies none Integumentary Denies rash or wounds Neurologic Neurologic: Denies weakness EXAM Physical Exam Const Vital Signs: 02/04/25 15:37 02/04/25 15:49 02/04/25 16:36 Temperature 98.5 F Temperature Source Oral Pulse Rate 72 60 Respiratory Rate 16 20 H Respiratory Effort Normal Respiratory Depth Normal Respiratory Pattern Normal Blood Pressure 143/58 H 119/74 Blood Pressure Mean 86 89 Pulse Ox 96 96 Oxygen Delivery Method Room Air Room Air Room Air 02/04/25 17:00 02/04/25 17:36 Temperature 97.4 F L Temperature Source Pulse Rate 75 75 Respiratory Rate 16 16 Respiratory Effort Respiratory Depth Respiratory Pattern Blood Pressure 120/73 120/73 Blood Pressure Mean 88 88 Pulse Ox 98 98 Oxygen Delivery Method Positive well nourished and well developed Constitutional Narrative: GCS 15. General Appearance ED: well developed and NAD HEENT Reports moist mucous membranes normocephalic and atraumatic Eyes General Eye ED: Yes normal appearance of both eyes Neck full ROM Chest Wall inspection of chest normal and palpation of chest normal Chest: Negative for tenderness Resp normal respiratory effort and normal air movement Effort and Inspection: symmetric chest movement; Negative for respiratory distress Cardio regular rate, regular rhythm and no murmurs Peripheral Pulses: pulses 2+ throughout GI normal to inspection, nondistended, normoactive bowel sounds and non-tender Palpation: Negative for guarding or rebound tenderness present Back/Spine no CVA tenderness Back/Spine Narrative: No midline tenderness no step-offs. No ecchymosis. Extremity Extremity Narrative: Upper extremity: Full range of motion without any tenderness. Right lower extremity: Negative logroll. Nontender soft compartments pulse intact distally. Left lower extremity: No hip tenderness no knee tenderness previous knee scar noted. Soft compartments. No ankle tenderness. There is dorsal foot tenderness with ecchymosis laterally skin is intact. Mild swelling was noted. General Extremety ED: Yes tenderness; Negative for edema General Extremity: Negative for edema Neuro oriented x3 and no sensory deficits noted Sensorium / Orientation: awake and alert Skin Skin Narrative: See above MDM MDM MDM Narrative Medical decision making narrative: Interventions / MDM: Differential diagnosis: Head injury, chronic anticoagulant with history of DVT, left foot fracture, contusion Diagnosis considered but do not suspect: Intracranial hemorrhage however CT negative. My EKG interpretation: N/A Imaging independently reviewed and interpreted by myself: Three-view x-ray left foot: Distal fifth metatarsal fracture. CT brain: No acute process also read by radiology. External documents reviewed: N/A Test considered but not ordered:N/A ED course: Patient declined any medications. Fall foot injury yesterday with head injury on anticoagulants. CT brain left foot x-ray ordered. Foot x-ray notes fracture distal fifth metatarsal. Placed in a walking boot. CT brain returned negative. Discussed with her using Tylenol as needed for pain as she is on anticoagulant. She is given follow-up with podiatry. Able to ambulate with a walking boot. All questions were answered. Re-evaluation: stable Disposition discussed with patient/family/significant other: Patient and family Case discussed with consulting clinician: N/A This note was generated with [employer] dictation software. It may contain incorrect words, spelling, and punctuation that were not noted in checking the note before signing. Radiography Diagnostic Testing: Clinical Impression(s) from Imaging Studies Brain CT 02/04/25 15:58 IMPRESSION: No acute intracranial process. Reading Location: [facility] Foot X-Ray 02/04/25 16:18 IMPRESSION: A comminuted, moderately displaced, and overridden FRACTURE of the mid to distal shaft of the left 5th metatarsal bone is seen. Vast degenerative changes and subluxation of the left 3rd proximal interphalangeal joint is also Moderate degenerative changes are seen of the left 1st MTP joint, with associated hallux valgus. Reading Location: [place] [id number] Discharge Plan Triage Chief Complaint: Fall ED Provider: Andre Sanchez Dx/Rx/DC Orders Clinical Impression: Foot fracture, left, Fall, CHI (closed head injury), Chronic anticoagulation Instructions: ED Fracture, Foot, ED Head Injury (Adult) Prescriptions: No Action metoprolol tartrate 25 mg tablet 25 mg PO ONCE omeprazole 20 mg tablet,delayed release (DR/EC) 20 mg PO QDAY losartan-hydrochlorothiazide 100-25 mg tablet 1 tab PO QDAY citalopram [Celexa] 20 mg tablet 20 mg PO QDAY simvastatin 40 mg tablet 40 mg PO QODAY cholecalciferol (vitamin D3) 5,000 unit capsule 5,000 unit PO ONCE aspirin [Adult Low Dose Aspirin] 81 mg tablet,delayed release (DR/EC) 81 mg PO ONCE cranberry extract [Cranberry Concentrate] 500 mg capsule 500 mg PO QDAY multivitamin tablet 1 tab PO QDAY oxycodone-acetaminophen [Percocet] 5-325 mg tablet 1 tab PO PRN gabapentin 100 mg capsule 400 mg PO .4xday clindamycin HCl 300 mg capsule 300 mg PO 4X/DAY 7 Days Qty: 28 0RF Primary Care Provider: Senait Hannon Referrals: Senait Hannon DO [Primary Care Provider] - Wicho Yarbrough DPM [Med Staff - Active Staff] - 3-5 Days Activity Restrictions/Additional Instructions: Head CT negative. The left foot x-ray notes distal fifth metatarsal fracture. Maintain your boot for comfort. May use Tylenol every 6 hours as needed for pain. Follow-up with Dr. Yarbrough. Print Language: French Disposition Disposition: Home, Self Care Discharge Date/Time: 02/04/25 18:01
--- NOTE | 2025-02-04 16:18 | RAD_ITS ---
PROCEDURE: FOOT MIN 3 VIEWS 02/04/2025 REASON FOR EXAM: INJURY TECHNIQUE: FOOT MIN 3 VIEWS COMPARISON: None. RAD/Foot min 3 Views IMPRESSION: A comminuted, moderately displaced, and overridden FRACTURE of the mid to dista l shaft of the left 5th metatarsal bone is seen. Vast degenerative changes and subluxation of the left 3rd proximal interphalang eal joint is also Moderate degenerative changes are seen of the left 1st MTP joint, with associat ed hallux valgus. Reading Location: [place] [id number]
[2025-02-04 16:36] VITALS: BP 119/74; PULSE 60; RESP 20; O2SAT 96
[2025-02-04 17:00] VITALS: BP 120/73; PULSE 75; RESP 16; O2SAT 98
[2025-02-04 17:36] VITALS: BP 120/73; PULSE 75; RESP 16; TEMP 36.3; O2SAT 98
== END 2025-02-04 18:01 | disposition home or self-care (01) ==
PROVIDERS: Emergency Provider Emergency Medicine; PCP Internal Medicine; Visit Provider Emergency Medicine
DX: S92.352A Displaced fracture of fifth metatarsal bone, left foot, initial encounter for closed fracture (principal); E11.9 Type 2 diabetes mellitus without complications; S09.90XA Unspecified injury of head, initial encounter; W19.XXXA Unspecified fall, initial encounter; Z79.01 Long term (current) use of anticoagulants; Z87.891 Personal history of nicotine dependence
CPT/HCPCS: 70450; 73630; 99283

== ENCOUNTER → 2025-06-24 | Outpatient (CLI) | payer MEDICARE, SELFPAY | END | disposition home or self-care (01) | LOC: LABSPEC 15:03 | PROVIDERS: PCP Internal Medicine; Referring Provider Internal Medicine; Visit Provider Internal Medicine | DX: R30.0 Dysuria (principal) | CPT/HCPCS: 87077; 87086; 87088; 87186 ==